=== PATIENT | female | born 1970 | race Caucasian/White ===

== ENCOUNTER 2023-03-09 16:04 | Outpatient (CLI) | payer BC, SELFPAY | END 2023-03-09 16:05 | disposition home or self-care (01) | LOC: NFLDREF 03-12 08:03 | PROVIDERS: Visit Provider Family Medicine | DX: R30.0 Dysuria (principal); N39.0 Urinary tract infection, site not specified | CPT/HCPCS: 87086; 87186 ==

== ENCOUNTER 2025-02-05 13:00 | Emergency (ER) | payer BC, SELFPAY ==
[2025-02-05] VITALS (132 sets, daily range): BP systolic 94–150; BP diastolic 64–138; PULSE 66–97; RESP 0–25; TEMP 36.2–36.4; O2SAT 89–99; BMI 37.8
--- OUTSIDE RECORDS SUMMARY | 2025-02-05 13:07 | XMS_ITS | Clinical Summary ---
Author Organization [facility] Address [address], [place] [address] Care Team Providers Care School Child Care Attendant Name Role Phone Unavailable Primary Care Provider Unavailabl e Source Comments You are receiving this document as you are listed as the primary care provider,follow-up provider, or the patient has been referred to you for consultation.This is in compliance with the Medicare andMedicaid EHR Incentive Program,which states Providers who transition their patient to another setting of careor provider of care or refers their patient to another provider of care shouldprovide summary care record for each transition of care or referral. [facility] Allergies No known active allergies Medications cyclobenzaprine (FLEXERIL) 10 MG tablet Take 1 Tablet (10 mg) by mouth three times a day as needed. FOR MUSCLE SPASMS 01/02/2023 Active doxepin (SINEQUAN) 50 MG capsule TAKE 1-2 CAPSULES BY MOUTH AT BEDTIME 12/19/2022 Active lamoTRIgine (LAMICTAL) 150 MG tablet Take 1 Tablet (150 mg) by mouth daily at bedtime. 01/03/2023 Active LORazepam (ATIVAN) 1 MG tablet Take 1 Tablet (1 mg) by mouth every 6 hours as needed. 01/01/2023 Active OLANZapine (ZYPREXA) 10 MG tablet Take 1 Tablet (10 mg) by mouth daily at bedtime. 01/03/2023 Active prazosin (MINIPRESS) 5 MG capsule Take 2 Capsules (10 mg) by mouth daily at bedtime. 12/08/2022 Active VIIBRYD 40 MG tablet Take 1 Tablet (40 mg) by mouth daily. 12/19/2022 Active Social History Tobacco Use Types Packs/Day Years Used Date Smoking Tobacco: Never Assessed Comments Unknown Sex and Gender Information Value Date Recorded Sex Assigned at Not on file Legal Sex Female 1:15 PM CDT Gender Identity Not on file Sexual Orientation Not on file Last Filed Vital Signs Vital Sign Reading Time Taken Comments Blood Pressure - - Pulse - - Temperature 36.3 C (97.3 F) 01/22/2023 11:25 AM CDT Respiratory Rate - - Oxygen Saturation - - Inhaled Oxygen Concentration - - Weight 99.8 kg (220 lb) 01/15/2023 2:05 PM CDT Height 162.6 cm (5' 4) 01/15/2023 2:05 PM CDT Body Mass Index 37.76 01/15/2023 2:05 PM CDT Plan of Treatment Health Maintenance Due Date Last Done Comments Cervical Cancer Screening Due 1970 Colon Cancer Screening Plan Due 1970 Hep C Screening (Preventive Services) 1970 Mammogram 1970 HIV Screening (Preventive Services) 1986 Adult Preventive Visit 1988 DTaP/Tdap/Td Vaccine (1 - Tdap) 1989 HepB Vaccine (1) 1989 Cholesterol 10/27/2015 Pneumococcal Vaccine 50+ Yrs (1 of 1 - PCV) 2020 Zoster/Shingles Vaccine (1 o f 2) 2020 COVID-19 Vaccine (4 - 2023-2 5 season) 2024 05/10/2021, 09/22/2020, 08/25/2020 Influenza Vaccine (#1) 2025 HepA Vaccine Aged Out No longer eligi ble based on patient's age to complete this topic Hib Vaccine Aged Out No longer eligi ble based on patient's age to complete this topic IPV (Polio) Vaccine Aged Out No longe r eligible based on patient's age to complete this topic MCV4 Vaccine Aged Out No longer eligi ble based on patient's age to complete this topic Meningococcal B Vaccine Aged Out No l onger eligible based on patient's age to complete this topic
--- OUTSIDE RECORDS SUMMARY | 2025-02-05 13:07 | XMS_ITS | Clinical Summary ---
Author Organization [facility] Address [address] [address] Phone Care Team Providers Care Pretzel Twisting Machine Operator Name Role Phone Elsewhere, Pcp Primary Care Provider Unavailabl e Allergies No known active allergies Medications busPIRone (BUSPAR) 5 MG tablet Take 5 mg by mouth two times a day. 02/15/2018 Active cyclobenzaprine (FLEXERIL) 10 MG tablet Take 10 mg by mouth three times a day as needed for Muscle Spasms. 02/15/2018 Active prazosin (MINIPRESS) 1 MG capsule Take 1-2 mg by mouth every evening. 02/15/2018 Active Active Problems Problem Noted Date Diagnosed Date Pulmonary embolism - right, segmental times 2 Overview (06/14/2014): Unprovoked Immunizations Immunization Administration Dates Next Due COVID-19 Vaccine: Moderna Dose 1 (18+ Yrs) Imm C linic 08/25/2020 09/22/2020 Family History Relation Status Comments Father aortic aneurism Mother Has CREST Sister Raynaud's Social History Tobacco Use Types Packs/Day Years Used Date Smoking Tobacco: Never Alcohol Use Standard Drinks/Week Comments No 0 (1 standard drink = 0.6 oz pur e alcohol) Occasional Comments No Sex and Gender Information Value Date Recorded Sex Assigned at Not on file Legal Sex Female 9:35 AM FITNESS CLUB MANAGER Gender Identity Not on file Sexual Orientation Not on file Primary [place] Affiliation Non Martiniquais (And Non-FED Nithin gnized Martiniquais) Obstetrics History Last Filed Vital Signs Vital Sign Reading Time Taken Comments Blood Pressure 147/93 03/06/2018 7:50 AM CDT Pulse 74 03/06/2018 7:50 AM CDT Temperature 36.6 C (97.9 F) 08/25/2020 2:12 PM CDT Respiratory Rate 16 03/06/2018 7:50 AM CDT Oxygen Saturation 98% 03/06/2018 7:50 AM CDT Inhaled Oxygen Concentration - - Weight 86.2 kg (190 lb) 03/05/2018 2:12 PM CDT Height 162.6 cm (5' 4) 03/05/2018 2:12 PM CDT Body Mass Index 32.61 03/05/2018 2:12 PM CDT Plan of Treatment Health Maintenance Due Date Last Done Comments CT Colonography 1970 Cervical Cancer Screening 1970 Cologuard 1970 Colonoscopy 1970 Colorectal Cancer Screening 1970 FIT/FOBT 1970 Last pap w/ HPV Testing 1970 Last pap w/o HPV Testing 1970 MAMMO,SCREEN 1970 Sigmoidoscopy 1970 Hepatitis B Vaccine (Standin g Order) (1 of 3 - 19+ 3-dose series) 1989 PERTUSSIS (Standing Order) 1989 TETANUS (Standing Order) 1989 Pneumococcal Vaccine: 50+ yr s (Standing Order) (1 of 1 - PCV) 2020 Shingrix (Zoster recombinant ) vaccine (Standing Order) (1 of 2) 2020 Influenza Vaccine Seasonal (Standing Order) (#1) 2025 HPV Vaccine (Standing Order) Aged Out No longer eligible based on patient's age to complete this topic Insurance [employer] Care Teams Pretzel Twisting Machine Operator Relationship Specialty Start Date End Date Elsewhere, Pcp PCP - General 08/15/01
--- OUTSIDE RECORDS SUMMARY | 2025-02-05 13:07 | XMS_ITS | Clinical Summary ---
Author Organization [facility] Address [address] [place] [address]. [place] [address] Care Team Providers Care Women'S Activities Adviser Name Role Phone Eric Narayanan MD Primary Care Provider [phone] Galindo Ruelas MD Unavailable [phone] Allergies Active Allergy Reactions Criticality Noted Date Comments Escitalopram Hives Low 03/06/2018 Medications ibuprofen (ADVIL/MOTRIN) 200 MG tablet Take 600 mg by mouth every 6 hours as needed for moderate pain Active ondansetron (ZOFRAN-ODT) 4 MG ODT tab Take 4 mg by mouth every 8 hours as needed for nausea or vomiting 3 9 Active VIIBRYD 40 MG TABS tablet Take 40 mg by mouth daily with a meal. 4 9 Active cyclobenzaprine (FLEXERIL) 10 MG tablet Take 10 mg by mouth 3 times daily as needed for muscle spasms Active aspirin-acetami nophen-caffeine (EXCEDRIN MIGRAINE) 250-250-65 MG tablet Take 2 tablets by mouth as needed for headaches Active busPIRone (BUSPAR) 15 MG tabletIndicatio ns:Depression with suicidal ideation Take 1 tablet (15 mg) by mouth 3 times daily 90 tablet 9 Active gabapentin (NEURONTIN) 400 MG capsuleIndicati ons:Depression with suicidal ideation Take 2 capsules (800 mg) by mouth 3 times daily 180 capsule 9 Active prazosin (MINIPRESS) 2 MG capsuleIndicati ons:Depression with suicidal ideation Take 6 capsules (12 mg) by mouth At Bedtime 180 capsule 9 Active QUEtiapine (SEROQUEL) 200 MG tabletIndicatio ns:Depression with suicidal ideation Take 1 tablet (200 mg) by mouth At Bedtime 30 tablet 9 Active lamoTRIgine (LAMICTAL) 25 MG tabletIndicatio ns:Depression with suicidal ideation Take 1 tablet (25 mg) by mouth At Bedtime 30 tablet 9 Active LORazepam (ATIVAN) 0.5 MG tabletIndicatio ns:Depression with suicidal ideation Take 1 tablet (0.5 mg) by mouth daily as needed (For severe panic only) 10 tablet 9 Active senna-docusate (SENOKOT-S/KECIA COLACE) 8.6-50 MG tabletIndicatio ns:Depression with suicidal ideation Take 2 tablets by mouth 2 times daily 120 tablet 9 Active Active Problems Problem Noted Date Diagnosed Date Depression with suicidal ideation 03/06/2018 PTSD (post-traumatic stress disorder) 03/06/2018 Moderate episode of recurrent major depressive d isorder 03/06/2018 Pulmonary embolism and infarction 06/13/2014 Overview (03/05/2015): Problem list name updated by automated process. Provider to review Family History Medical History Relation Comments Cerebrovascular Disease Brother TIA age 18 Thrombophilia Other 1 maternal aunt Circulatory Other 2 varicose veins i n mother and aunt Relation Status Comments Brother Other 1 Other 2 Social History Tobacco Use Types Packs/Day Years Used Date Smoking Tobacco: Never Smokeless Tobacco: Never Alcohol Use Standard Drinks/Week Comments Yes 0 (1 standard drink = 0.6 oz pur e alcohol) Adolescent Education Answer Date Record ed Getting School Help Needed Not on file 11/27 Comments Unknown Sex and Gender Information Value Date Recorded Sex Assigned at Not on file Legal Sex Female 4:20 AM TACK CLEANER Gender Identity Not on file Sexual Orientation Not on file Last Filed Vital Signs Vital Sign Reading Time Taken Comments Blood Pressure 115/76 05/25/2019 6:00 AM TACK CLEANER Pulse 82 05/25/2019 6:00 AM TACK CLEANER Temperature 35.9 C (96.7 F) 05/25/2019 6:00 AM TACK CLEANER Respiratory Rate 14 05/25/2019 6:00 AM TACK CLEANER Oxygen Saturation 96% 05/25/2019 6:00 AM TACK CLEANER Inhaled Oxygen Concentration - - Weight 98.3 kg (216 lb 11.2 oz) 05/25/2019 7:38 AM TACK CLEANER Height 162.6 cm (5' 4) 03/06/2018 11:1 5 AM CDT Body Mass Index 37.2 03/06/2018 11:15 AM CDT Plan of Treatment Health Maintenance Due Date Last Done Comments ANNUAL REVIEW OF HM ORDERS 1970 CT COLONOGRAPHY 1970 DEPRESSION ACTION PLAN 1970 DIABETES SCREENING 1970 FIT 1970 FLEX SIG 1970 MAMMO SCREENING 1970 PHQ-9 1970 sDNA (Cologuard) 1970 YEARLY PREVENTIVE VISIT 1973 COLONOSCOPY 1980 COLORECTAL CANCER SCREENING 1980 HIV SCREENING 1985 HEPATITIS C SCREENING 1988 HEPATITIS B VACCINE (1 of 3 - 19+ 3-dose series) 1989 PAP 10/27/1991 DTAP/TDAP/TD VACCINE (1 - Tdap) 10/27/1995 LIPID 2010 PNEUMOCOCCAL VACCINE 50+ YEARS (1 of 1 - PCV) 2020 ZOSTER VACCINE (1 of 2) 2020 ADVANCE CARE PLANNING 03/07/2023 03/07/2018 COVID-19 VACCINE (4 - 2023-2 5 season) 2024 05/10/2021, 09/22/2020, 08/25/2020 INFLUENZA VACCINE (#1) 2025 HPV VACCINE (No Doses Required) Completed MENINGITIS VACCINE Aged Out No longer eligible based on patient's age to complete this topic Advance Directives For more information, please contact: [phone] * Full Code (Latest Code Status on File) Date Activated Date Inactivated Comments 05/15/2019 2:14 PM 05/25/2019 4:18 PM Question Answer Comments Code status determined by: Unable to det ermine; FULL CODE until documents or legal decision maker available * Full Code Date Activated Date Inactivated Comments 03/06/2018 11:58 AM 03/08/2018 3:33 PM Question Answer Comments Code status determined by: Unable to det ermine; FULL CODE until documents or legal decision maker available Care Teams Women'S Activities Adviser Relationship Specialty Start Date End Date Eric Narayanan MD PCP - General Family Practice 12/17/14 Galindo Ruelas MD [address] [place] [id number] Radiology 12/18/14
--- OUTSIDE RECORDS SUMMARY | 2025-02-05 13:07 | XMS_ITS | Encounter Summary ---
Author Organization [facility] Address [facility] [place] [address] Care Team Providers Care Biofuels Processing Technician Name Role Phone Eric Narayanan MD Primary Care Provider [phone] Galindo Ruelas MD Unavailable [phone] Reason for Visit * Reason Comments Medication Refill Encounter Details Date Type Department Care Team (Late st Contact Info) Description 06/26/2019 Refill [facility] [address] [place] [id number] Naz Hutchison NP [address]. [address] [address] Medication Refill Social History Tobacco Use Types Packs/Day Years Used Date Smoking Tobacco: Never Smokeless Tobacco: Never Alcohol Use Standard Drinks/Week Comments Yes 0 (1 standard drink = 0.6 oz pur e alcohol) Comments Unknown Sex and Gender Information Value Date Recorded Sex Assigned at Not on file Legal Sex Female 4:20 AM CHEMIST INTERN Gender Identity Not on file Sexual Orientation Not on file documented as of this encounter Miscellaneous Notes * Telephone Encounter - Meri Salcedo RPH - 07/04/2019 9:10 AM CHEMIST INTERN Called [facility] in [place]. They had already talked to patient and forwarded to primary. IST INTERN documented in this encounter Plan of Treatment Not on file documented as of this encounter Visit Diagnoses Diagnosis Depression with suicidal ideation documented in this encounter Care Teams Biofuels Processing Technician Relationship Specialty Start Date End Date Eric Narayanan MD PCP - General Family Practice 12/17/14 Galindo Ruelas MD [address] [address] Radiology 12/18/14 documented as of this encounter
--- OUTSIDE RECORDS SUMMARY | 2025-02-05 13:07 | XMS_ITS | Clinical Summary ---
Author Organization [facility] Address [address] [place] [id number] Care Team Providers Care Iuss Acoustic Analyst Name Role Phone Eric Narayanan MD Primary Care Provider [phone] Anahi Alonso CONFERENCE SERVICES DIRECTOR Unavailable [phone] Allergies Active Allergy Reactions Criticality Noted Date Comments Escitalopram Hives Low 03/06/2018 Medications ibuprofen (ADVIL; MOTRIN) 200 mg tablet Take 800 mg by mouth 4 times daily if needed for Pain. Active aspirin-acetam inophen-caffei ne, 250-250-65 mg, (EXCEDRIN MIGRAINE) 250-250-65 mg tablet Take 2 tablets by mouth every 6 hours if needed for Headache. Max acetaminophen dose: 4000mg in 24 hrs. Active cyclobenzaprin e (FLEXERIL) 10 mg tabletIndicati ons:Fibromyalg ia Take 1 Tablet (10 mg) by mouth 3 times daily if needed for Muscle Spasm. 30 Tablet 12 3 Active vilazodone (Viibryd) 40 mg tabletIndicati ons:PTSD (post-traumati c stress disorder) TAKE 1 TABLET (40 MG) BY MOUTH ONCE DAILY WITH A MEAL. 30 Tablet 6 3 Active doxepin 50 mg capsuleIndicat ions:Other insomnia TAKE 1 OR 2 CAPSULES BY MOUTH AT BEDTIME 60 Capsule 3 3 Active lamoTRIgine (LAMICTAL) 150 mg tabletIndicati ons:PTSD (post-traumati c stress disorder) Take 1 Tablet (150 mg) by mouth at bedtime. 30 Tablet 3 3 Active LORazepam (ATIVAN) 1 mg tabletIndicati ons:PTSD (post-traumati c stress disorder) Take 1 Tablet (1 mg) by mouth every 6 hours if needed for Anxiety. 45 Tablet 3 3 Active OLANzapine (ZYPREXA, FILM COATED TABLET,) 10 mg tabletIndicati ons:Agitation TAKE 1 TABLET (10 MG) BY MOUTH AT BEDTIME. 30 Tablet 3 3 Active prazosin (MINIPRESS) 5 mg capsuleIndicat ions:PTSD (post-traumati c stress disorder) Take 2 Capsules (10 mg) by mouth at bedtime. 60 Capsule 3 3 Active Active Problems Problem Noted Date Diagnosed Date Obesity, morbid 04/18/2022 Controlled substance agreement signed 07/22/2019 Overview (04/11/2022): Initial CSA sign with Anahi Alonso, PhD, CFNP, PMHNP for Lorazepam on 07/22/2019-07/22/2020. Annual update 04/11/2022-04/11/2023 Chronic anemia 06/07/2019 Cellulitis of right leg 06/04/2019 Lymphangitis 06/04/2019 Dysthymic disorder 07/30/2018 Moderate episode of recurrent major depressive d isorder 03/06/2018 PTSD (post-traumatic stress disorder) 07/28/2016 Overview (07/30/2019): Previous medications tried: Lexapro 07/28/16 and Cymbalta 07/18/16 Previous hospitalizations: 03/06/18 [facility], 05/15/19 [facility] Genesight testing done 05/23/18 Last psych consult 05/09/18 Assessment & Plan (09/06/2021 8:34 PM CDT): In the event pt requires a pelvic exam, do not attempt in exam room. Pt needs to go to OR for light sedation. History of pulmonary embolus (PE) Overview (06/24/2015): unprovoked Fibromyalgia Anxiety Refusal of blood transfusion s as patient is [employer]ian Family History Medical History Relation Name Comments Good Health Brother 2 Stroke Father Other Mother autoimmmune dis order Stroke Mother Other Sister 2 Raynaud's Disea se Relation Name Status Comments Brother 1 Alive Brother 2 Daughter Alive Father (Age 52) smoker Mother Alive Sister 1 Alive Sister 2 Son 1 Alive Son 2 Alive Social History Tobacco Use Types Packs/Day Years Used Date Smoking Tobacco: Never Smokeless Tobacco: Never Tobacco Cessation:Counseling Given: Yes Alcohol Use Standard Drinks/Week Comments Yes 0 (1 standard drink = 0.6 oz pur e alcohol) rare PHQ-2 Answer Date Recorded PHQ-2 TOTAL SCORE 4 04/11/2022 Social Connections Answer Date Recorded Frequency of Communication with Friends and Fami ly Not on file 05/29/2021 Financial Resource Strain Answer Date R ecorded Difficulty of Paying Living Expenses Not on file 05/29/2021 Difficulty of Paying Living Expenses Not on file 05/29/2021 Comments Unknown Sex and Gender Information Value Date Recorded Sex Assigned at Not on file Legal Sex Female 3:04 AM ENTERTAINMENT USHER Gender Identity Not on file Sexual Orientation Not on file Obstetrics History Para Term AB IAB SAB Ectopic Multiple Livin g Live Births 3 Date Outcome GA Total Labor Labor/2nd/3rd Weight Sex Type Anes PTL Jojo A1 A5 Name Clin Last Filed Vital Signs Vital Sign Reading Time Taken Comments Blood Pressure 115/83 11/07/2022 1:10 PM CDT Pulse 100 11/07/2022 1:10 PM CDT Temperature 36.3 C (97.3 F) 11/07/2022 1:10 PM CDT Respiratory Rate 18 06/13/2019 11:0 0 AM ENTERTAINMENT USHER Oxygen Saturation 95% 11/07/2022 1:1 0 PM CDT Inhaled Oxygen Concentration - - Weight 115.2 kg (254 lb) 07/11/2022 1:0 4 PM ENTERTAINMENT USHER Height 162.6 cm (5' 4) 07/11/2022 1:04 PM ENTERTAINMENT USHER previous height used Body Mass Index 43.6 07/11/2022 1:04 PM ENTERTAINMENT USHER Plan of Treatment Health Maintenance Due Date Last Done Comments Tetanus booster 1981 HIV for age 15-65 1985 Hepatitis C screening for ag e 18-79 1988 Hepatitis B series for 19+ ( 1 of 3 - 19+ 3-dose series) 1989 Colonoscopy through age 75 10/27/2015 Mammogram for age 45-75 10/27/2015 07/10/2014, 07/10 Pneumococcal series for age 50+ (1 of 1 - PCV) 2020 Zoster (shingles) series for age 50+ (1 of 2) 2020 Pap test for age 21-65 06/25/2021 9, 06/25/2018, 09/04/2014 Depression screening for age 12+ 04/11/2023 04/11/2022, 05/17/2021, 05/17/2021 BMI (ht and wt on same day) for age 18+ 07/11/2023 07/11/2022, 04/11/2022, 08/19/2019, Additional history exists COVID-19 vaccine series (2024- season) 2025 05/10/2021, 09/22/2020, 08/25/2020 Influenza Vaccine (#1) 2025 Lipids for age 45-75 11/08/2027 11/07/2022, 04/04/2022, 06/17/2019 RSV vaccine for adults or (1 - 1-dose 75+ series) 2045 Procedures Procedure Name Priority Date/Time Associated Diagnosis Comments LIPID PANEL W REFLEX MEASURED LDL Routine 11/07/2022 1:27 PM CDT High risk medication use ELECTRICITY TRADING ANALYST THIN PREP PAP SCREEN IMAGED Routine 06/25/2018 10:26 AM ENTERTAINMENT USHER Screening for cervical cancer HM MAMMOGRAPHY Routine 07/10/2014 Screening for breast cancer from Last 3 Months or Most Recently Relevant to Health Maintenance Results * (ABNORMAL) LIPID PANEL W REFLEX MEASURED LDL (11/07/2022 1:27 PM CDT) CHOLESTEROL,TOTAL 245(H) <200 mg/dL 11/07/2022 6:[address] [facility] TRIGLYCERIDES 115 <150 mg/dL 11/07/2022 6:[address] [facility] HDL CHOLESTEROL 49 40 - 60 mg/dL 11/07/2022 6:[address] [facility] NON-HDL CHOLESTEROL 196(H) <145 mg/dl 11/07/2022 6:[address] [facility] CHOL/HDL RATIO 5.00(H) <=4.50 11/07/2022 6:[address] [facility] LDL CHOLESTEROL 173(H) <=130 mg/dL 11/07/2022 6:[address] [facility] VLDL CHOLESTEROL 23 mg/dL 11/08/19 23 6:[address] [facility] PROVIDER ORDERED STATUS RANDOM 11/07/2022 6:[address] [facility] Blood BLOOD SPECIMEN / Unknown Venipuncture / Unknown 11/07/2022 1:27 PM CDT 11/07/2022 1:27 PM CDT Anahi Alonso NP CHEMISTRY Final Result Performing Organization Address City/State/[facility] Co de Phone Number [facility] [address] [place] [address] * ELECTRICITY TRADING ANALYST THIN PREP PAP SCREEN IMAGED (06/25/2018 10:26 AM ENTERTAINMENT USHER) Case Report Gynecologic Cytology Report Case: [id number] Authorizing Provider: Tiana Lester NP Collected: 06/25/2018 1026 Ordering Location: [facility] Received: 06/25/[address] [place] [address] First Screen: Norman Haines Pathologist: Hector Washington Jr., MD Specimen: ELECTRICITY TRADING ANALYST ThinPrep Vial Screening, Cervical 07/09/2018 3:52 PM ENTERTAINMENT USHER [facility] INTERPRETATION/ RESULT NEGATIVE FOR INTRAEPITHELIAL LESION OR MALIGNANCY (NIL) (none) 07/09/2018 3:52 PM ENTERTAINMENT USHER [facility] ENTRAL LABORATORY at 1552 ENTERTAINMENT USHER OTHER NON-NEOPLASTIC FINDING(S) Reactive cellular changes associated with inflammation/repa ir 07/09/2018 3:52 PM ENTERTAINMENT USHER [facility] ENTRAL LABORATORY SPECIMEN ADEQUACY Satisfactory for evaluation Endocervical component present 07/09/2018 3:52 PM ENTERTAINMENT USHER [facility] ENTRAL LABORATORY HPV REQUEST HPV and PAP 07/09/2018 3:52 PM ENTERTAINMENT USHER [facility] ENTRAL LABORATORY Date of LMP 05/31/2018 07/09/2018 3:52 PM ENTERTAINMENT USHER [facility] Last Pap Date 201407/09/2018 3:52 PM ENTERTAINMENT USHER [facility] Last Pap Result LSIL 9 3:52 PM ENTERTAINMENT USHER [facility] Abnormal Pap or Cisco Bx in last 5 years No 07/09/2018 3:52 PM ENTERTAINMENT USHER [facility] Menstrual Status Regular Periods 07/09/2018 3:52 PM ENTERTAINMENT USHER [facility] Cisco Bx Done Today No 07/09/2018 3:52 PM ENTERTAINMENT USHER [facility] Additional Information None given 07/09/2018 3:52 PM [facility] Automated Review Successful 07/09/2018 3:52 PM ENTERTAINMENT USHER [facility] Comment:Specimen processed s uccessfully by automated poultry cutter device, ThinPrep Imaging System, [employer] ANCILLARY TESTING ELECTRICITY TRADING ANALYST HPV Ordered, Please see separate report 07/09/2018 3:52 PM ENTERTAINMENT USHER [facility] Note The pap test is a screening technique, not a diagnostic procedure. It is used primarily to screen for squamous cancers and precursor lesions. Published studies have shown that it is subject to both false negative and false positive results. The pap test should not be used as the sole means to diagnose or exclude pre-malignant and malignant lesions. Cytology is screened and interpreted at [facility] - [address], [place] [address] and [facility] - [address]; [place] [address] and - [address]; [place] [address] and [facility] [address]; [place] [address] 07/09/2018 3:52 PM [facility] Other (Cervical) 06/25/2018 10:26 AM ENTERTAINMENT USHER 06/25/2018 10:26 AM ENTERTAINMENT USHER us Tiana M Lester CONFERENCE SERVICES DIRECTOR PATHOLOGY/CYTOLOGY Final Resu lt [facility] [address] [place] [address], * MAMMOGRAPHY [] (07/10/2014) MAMMOGRAM Anatomical Region Laterality Modality Other Other Eric Narayanan MD HEALTH MAINT RESULTS Final R esult from Last 3 Months or Most Recently Relevant to Health Maintenance Insurance [employer]zz[employer] - how to [place] [employer] [place] Advance Directives * Full Code (Latest Code Status on File) Date Activated Date Inactivated Comments 06/04/2019 11:46 PM 06/07/2019 3:41 PM Question Answer Comments Code Status Discussion: Discussed * Full Code Date Activated Date Inactivated Comments 09/25/2005 10:42 PM 09/27/2005 3:58 PM * Full Code Date Activated Date Inactivated Comments 09/25/2005 9:22 PM 09/25/2005 10:42 PM * Full Code Date Activated Date Inactivated Comments 09/25/2005 9:07 PM 09/25/2005 9:08 PM * Full Code Date Activated Date Inactivated Comments 08/11/2005 12:26 PM 08/11/2005 9:23 PM Care Teams Iuss Acoustic Analyst Relationship Specialty Start Date End Date Eric Narayanan MD PCP - General Family Practice 06/24/15 Anahi Alonso NP [address] [place] [address] Mental Health Provider Mental Health 05/23/18
--- OUTSIDE RECORDS SUMMARY | 2025-02-05 13:07 | XMS_ITS | Encounter Summary ---
Author Organization [facility] Address [facility] [place] [address] Care Team Providers Care Auxiliary Operator Name Role Phone Eric Narayanan MD Primary Care Provider [phone] Galindo Ruelas MD Unavailable [phone] Reason for Visit * Reason Comments Medication Refill Encounter Details Date Type Department Care Team (Late st Contact Info) Description 07/08/2019 Refill [facility] [address] [place] [id number] Naz Hutchison NP [address]. [address] [address] Medication Refill Social History Tobacco Use Types Packs/Day Years Used Date Smoking Tobacco: Never Smokeless Tobacco: Never Alcohol Use Standard Drinks/Week Comments Yes 0 (1 standard drink = 0.6 oz pur e alcohol) Comments Unknown Sex and Gender Information Value Date Recorded Sex Assigned at Not on file Legal Sex Female 4:20 AM IMPLEMENTATION SERVICES ANALYST Gender Identity Not on file Sexual Orientation Not on file documented as of this encounter Miscellaneous Notes * Telephone Encounter - Meri Salcedo RPH - 07/08/2019 3:09 PM IMPLEMENTATION SERVICES ANALYST Needs to be sent to patient's PCP EMENTATION SERVICES ANALYST documented in this encounter Plan of Treatment Not on file documented as of this encounter Visit Diagnoses Diagnosis Depression with suicidal ideation documented in this encounter Care Teams Auxiliary Operator Relationship Specialty Start Date End Date Eric Narayanan MD PCP - General Family Practice 12/17/14 Galindo Ruelas MD [address] [place] [address] Radiology 12/18/14 documented as of this encounter
--- NOTE | 2025-02-05 13:19 | CRLHL7_ITS ---
For Patients: As a result of the Century Cures Act, medical imaging exams and procedure reports are released immediately into your electronic medical record. You may view this report before your referring provider. If you have questions, please contact your health care provider. INDICATION: Shortness of breath. TECHNIQUE: Chest 2 views. COMPARISON: None. FINDINGS: Cardiovascular and mediastinum: Heart size and vasculature are normal in caliber and appearance. Lungs and pleural spaces: No focal consolidation, pleural effusion, or pneumothorax. Bones and soft tissues: Unremarkable for age. IMPRESSION: No evidence of an acute pulmonary process. Dictated by Galindo Power MD @ 02/05/2025 1:51:18 PM (Electronically Signed)
[2025-02-05 13:38] LABS: Lactate* 1.7 mmol/L (0.5-1.9)
[2025-02-05] MEDS: ASPIRIN 81 MG TAB.CHEW 324 MG PO (13:46)
[2025-02-05] MEDS: ONDANSETRON 2 MG/ML inj 4 MG IVP (13:53)
--- NOTE | 2025-02-05 13:54 | ED.GENADULT ---
HPI - General Adult General Chief complaint: Chest Pain Stated complaint: Chest/L arm pain Time Seen by Provider: 02/05/25 13:12 Source: patient Mode of arrival: ambulatory Limitations: no limitations History of Present Illness HPI narrative: 54-year-old female presenting today with chest pain and shortness of breath. Patient states she has felt this way for about 3 weeks. She feels chest discomfort over the left chest wall that radiates down the left arm and into her left jaw with minimal physical activity. She has to go up and down the stairs in her home when she does the laundry this is when she feels it the most. Causes her to feel sweaty and short of breath and nauseated. She also feels somewhat lightheaded when this occurs. When she stops and rests her symptoms go away. However, this morning she woke up and started feeling that discomfort right away. She states that is still present right now but not as strong as it was, she does feel nauseous. Patient denies any past medical history of coronary artery disease. She does have a history of a PE approximately 8 years ago. She also has anxiety, depression, PTSD, fibromyalgia, obesity. She denies tobacco use. Family history is positive for a father with coronary artery disease, from an RI at the age of 50. Mom at the age of 68 from a stroke. Patient is not anticoagulated. Does not take daily aspirin. Denies history of hyperlipidemia or hypertension. Is not diabetic. Related Data Home Medications ?Medication ?Instructions ?Recorded ?Confirmed cyclobenzaprine 10 mg tablet 10 mg PO 3XD 03/09/23 02/05/25 doxepin 50 mg capsule mg PO 03/09/23 03/09/23 lamotrigine 150 mg tablet 150 mg PO DAILY 03/09/23 02/05/25 lorazepam 1 mg tablet 1 mg PO 3XD 03/09/23 02/05/25 olanzapine 10 mg tablet 10 mg PO QPM 03/09/23 02/05/25 vilazodone 40 mg tablet (Viibryd) 40 mg PO DAILY 03/09/23 02/05/25 prazosin 5 mg capsule 10 mg PO DAILY 02/05/25 02/05/25 Allergies Allergy/AdvReac Type Severity Reaction Status Date / Time No Known Drug Allergies Allergy Verified 03/09/23 16:57 Review of Systems Status of ROS: Reports: 10 or more systems reviewed and unremarkable except as noted in History and below [facility] Social History Smoking Status: Never smoker Do you use any of these nicotine containing products: None Second hand tobacco smoke exposure: No How often do you have a drink containing alcohol: never AUDIT-C Alcohol total score: 0 Non-prescribed substance use: denies use service: No Exam Narrative: Exam Narrative: Obese, well-developed patient in no acute distress. Alert and oriented. Answers questions appropriately. Mood and affect are appropriate. Thoughts are goal oriented and rational. No tangential or magical thinking noted. Patient speaks in full sentences without needing to catch her breath. HEENT: Normocephalic atraumatic. Pupils are equally round reactive to light. Extraocular muscles are intact. Conjunctivae are moist without any icterus noted. Moist mucous membranes. Posterior pharynx is normal. Neck is soft without any lymphadenopathy or thyromegaly. Cardiovascular: Heart is regular rate and rhythm S1 and S2 are present without any murmurs. Lungs: Clear to auscultation bilaterally no wheezes rhonchi or rales are appreciated. Patient takes deep breaths without any discomfort. Abdomen: Soft and nontender nondistended with normal bowel sounds. Extremities: Bilateral lower extremities are without edema. Skin: Well perfused without any obvious rashes. Const: Vital Signs, click to edit/add: Vital Signs - 24 hr 02/05/25 13:05 02/05/25 13:35 02/05/25 13:37 Temperature 97.6 F Pulse Rate 78 81 Pulse Rate [Pulse Oximeter] 90 Respiratory Rate 18 10 L Blood Pressure 136/76 Blood Pressure [Ri ght Upper Arm] 104/73 Pulse Oximetry 94 96 94 Oxygen Delivery Me thod Room Air 02/05/25 13:45 02/05/25 13:46 02/05/25 14:00 Temperature Pulse Rate 78 84 76 Pulse Rate [Pulse Oximeter] Respiratory Rate 7 L 7 L 13 Blood Pressure 125/87 Blood Pressure [Ri ght Upper Arm] Pulse Oximetry 96 97 98 Oxygen Delivery Me thod 02/05/25 14:01 02/05/25 14:15 02/05/25 14:22 Temperature Pulse Rate 77 78 79 Pulse Rate [Pulse Oximeter] Respiratory Rate 8 L 0 L 7 L Blood Pressure 118/81 122/77 Blood Pressure [Ri ght Upper Arm] Pulse Oximetry 97 97 95 Oxygen Delivery Mt thod 02/05/25 14:30 02/05/25 14:48 02/05/25 14:49 Temperature 97.1 F L Pulse Rate 79 79 Pulse Rate [Pulse Oximeter] Respiratory Rate 10 L 23 13 Blood Pressure 129/74 Blood Pressure [Ri ght Upper Arm] Pulse Oximetry 94 97 [facility] 02/05/25 14:50 02/05/25 14:53 02/05/25 15:00 Temperature Pulse Rate 66 78 Pulse Rate [Pulse Oximeter] Respiratory Rate 14 13 Blood Pressure Blood Pressure [Ri ght Upper Arm] Pulse Oximetry 96 96 95 Oxygen Delivery [facility] 02/05/25 15:02 02/05/25 15:07 02/05/25 15:11 Temperature Pulse Rate 85 74 75 Pulse Rate [Pulse Oximeter] Respiratory Rate 15 12 9 L Blood Pressure 106/68 106/68 107/72 Blood Pressure [Ri ght Upper Arm] Pulse Oximetry 93 94 93 Oxygen Delivery [facility] 02/05/25 15:12 02/05/25 15:15 02/05/25 15:17 Temperature Pulse Rate 74 73 76 Pulse Rate [Pulse Oximeter] Respiratory Rate 16 8 L 11 L Blood Pressure 109/73 Blood Pressure [Ri ght Upper Arm] Pulse Oximetry 92 93 94 Oxygen Delivery [facility] 02/05/25 15:22 02/05/25 15:27 02/05/25 15:30 Temperature Pulse Rate 73 78 76 Pulse Rate [Pulse Oximeter] Respiratory Rate 19 20 10 L Blood Pressure 123/73 121/77 Blood Pressure [Ri ght Upper Arm] Pulse Oximetry 95 96 92 Oxygen Delivery [facility] 02/05/25 15:32 02/05/25 15:45 02/05/25 15:53 Temperature Pulse Rate 75 73 72 Pulse Rate [Pulse Oximeter] Respiratory Rate 16 8 L 7 L Blood Pressure 112/71 Blood Pressure [Ri ght Upper Arm] Pulse Oximetry 95 97 95 Oxygen Delivery [facility] 02/05/25 16:00 02/05/25 16:02 02/05/25 16:06 Temperature Pulse Rate 82 72 68 Pulse Rate [Pulse Oximeter] Respiratory Rate 14 7 L 9 L Blood Pressure 120/93 H 115/71 Blood Pressure [Ri ght Upper Arm] Pulse Oximetry 98 94 95 Oxygen Delivery Me thod 02/05/25 16:11 02/05/25 16:15 02/05/25 16:17 Temperature Pulse Rate 71 70 68 Pulse Rate [Pulse Oximeter] Respiratory Rate 10 L 8 L 8 L Blood Pressure 108/67 106/66 Blood Pressure [Ri ght Upper Arm] Pulse Oximetry 96 96 96 Oxygen Delivery Mt thod 02/05/25 16:18 02/05/25 16:22 02/05/25 16:27 Temperature Pulse Rate 71 79 82 Pulse Rate [Pulse Oximeter] Respiratory Rate 7 L 12 18 Blood Pressure 94/66 116/74 Blood Pressure [Ri ght Upper Arm] Pulse Oximetry 96 97 93 Oxygen Delivery Mt thod 02/05/25 16:30 02/05/25 16:32 02/05/25 16:37 Temperature Pulse Rate 80 73 74 Pulse Rate [Pulse Oximeter] Respiratory Rate 14 9 L 14 Blood Pressure 115/72 115/74 Blood Pressure [Ri ght Upper Arm] Pulse Oximetry 92 95 96 Oxygen Delivery Mt thod 02/05/25 16:42 02/05/25 16:45 02/05/25 16:47 Temperature Pulse Rate 78 74 72 Pulse Rate [Pulse Oximeter] Respiratory Rate 18 17 10 L Blood Pressure 120/78 121/77 Blood Pressure [Ri ght Upper Arm] Pulse Oximetry 98 95 98 Oxygen Delivery Mt thod 02/05/25 16:52 02/05/25 16:56 02/05/25 17:00 Temperature Pulse Rate 85 79 83 Pulse Rate [Pulse Oximeter] Respiratory Rate 13 4 L 10 L Blood Pressure 117/72 105/64 Blood Pressure [Ri ght Upper Arm] Pulse Oximetry 98 94 97 Oxygen Delivery Mt thod 02/05/25 17:01 02/05/25 17:06 02/05/25 17:12 Temperature Pulse Rate 84 81 83 Pulse Rate [Pulse Oximeter] Respiratory Rate 10 L 17 13 Blood Pressure 119/77 122/74 114/68 Blood Pressure [Ri ght Upper Arm] Pulse Oximetry 98 95 95 Oxygen Delivery Mt thod 02/05/25 17:15 02/05/25 17:17 02/05/25 17:22 Temperature Pulse Rate 81 83 83 Pulse Rate [Pulse Oximeter] Respiratory Rate 13 9 L 10 L Blood Pressure 119/70 118/65 Blood Pressure [Ri ght Upper Arm] Pulse Oximetry 97 96 97 Oxygen Delivery Me thod 02/05/25 17:27 02/05/25 17:30 02/05/25 17:32 Temperature Pulse Rate 83 83 80 Pulse Rate [Pulse Oximeter] Respiratory Rate 17 12 12 Blood Pressure 120/71 122/68 Blood Pressure [Ri ght Upper Arm] Pulse Oximetry 97 99 98 Oxygen Delivery Me thod 02/05/25 17:37 02/05/25 17:38 02/05/25 17:42 Temperature Pulse Rate 86 82 81 Pulse Rate [Pulse Oximeter] Respiratory Rate 15 12 9 L Blood Pressure 123/65 114/78 Blood Pressure [Ri ght Upper Arm] Pulse Oximetry 96 96 97 Oxygen Delivery Me thod 02/05/25 17:45 02/05/25 17:47 02/05/25 17:51 Temperature Pulse Rate 76 78 Pulse Rate [Pulse Oximeter] Respiratory Rate 11 L 7 L 11 L Blood Pressure 114/74 115/74 Blood Pressure [Ri ght Upper Arm] Pulse Oximetry 91 98 Oxygen Delivery Mt thod 02/05/25 17:56 02/05/25 18:00 02/05/25 18:01 Temperature Pulse Rate 75 76 73 Pulse Rate [Pulse Oximeter] Respiratory Rate 12 10 L 10 L Blood Pressure 108/86 111/71 Blood Pressure [Ri ght Upper Arm] Pulse Oximetry 97 92 91 Oxygen Delivery Mt thod 02/05/25 18:06 02/05/25 18:12 02/05/25 18:15 Temperature Pulse Rate 73 75 76 Pulse Rate [Pulse Oximeter] Respiratory Rate 7 L 16 6 L Blood Pressure 109/71 115/76 Blood Pressure [Ri ght Upper Arm] Pulse Oximetry 93 92 97 Oxygen Delivery Me thod 02/05/25 18:17 02/05/25 18:22 02/05/25 18:27 Temperature Pulse Rate 76 76 76 Pulse Rate [Pulse Oximeter] Respiratory Rate 12 8 L 8 L Blood Pressure 114/66 109/66 112/72 Blood Pressure [Ri ght Upper Arm] Pulse Oximetry 96 96 97 Oxygen Delivery Me thod 02/05/25 18:30 02/05/25 18:32 02/05/25 18:37 Temperature Pulse Rate 80 78 80 Pulse Rate [Pulse Oximeter] Respiratory Rate 10 L 11 L 11 L Blood Pressure 111/69 122/73 Blood Pressure [Ri ght Upper Arm] Pulse Oximetry 90 92 91 Oxygen Delivery Me thod 02/05/25 18:44 02/05/25 18:48 02/05/25 18:52 Temperature Pulse Rate Pulse Rate [Pulse Oximeter] Respiratory Rate 18 20 Blood Pressure 150/138 H 122/77 Blood Pressure [Ri ght Upper Arm] Pulse Oximetry Oxygen Delivery Mt thod 02/05/25 18:57 02/05/25 19:00 02/05/25 19:02 Temperature Pulse Rate 73 73 72 Pulse Rate [Pulse Oximeter] Respiratory Rate 15 7 L 13 Blood Pressure 128/80 123/80 Blood Pressure [Ri ght Upper Arm] Pulse Oximetry 96 96 93 Oxygen Delivery Mt thod 02/05/25 19:07 02/05/25 19:11 02/05/25 19:12 Temperature Pulse Rate 74 89 92 Pulse Rate [Pulse Oximeter] Respiratory Rate 12 9 L 20 Blood Pressure 118/82 140/90 H Blood Pressure [Ri ght Upper Arm] Pulse Oximetry 95 95 97 Oxygen Delivery [facility] 02/05/25 19:15 02/05/25 19:17 02/05/25 19:22 Temperature Pulse Rate 97 96 78 Pulse Rate [Pulse Oximeter] Respiratory Rate 22 21 13 Blood Pressure 150/91 H 131/83 Blood Pressure [Ri ght Upper Arm] Pulse Oximetry 97 97 98 Oxygen Delivery [facility] 02/05/25 19:27 02/05/25 19:30 02/05/25 19:32 Temperature Pulse Rate 77 74 74 Pulse Rate [Pulse Oximeter] Respiratory Rate 13 21 17 Blood Pressure 130/77 125/77 Blood Pressure [Ri ght Upper Arm] Pulse Oximetry 95 94 94 Oxygen Delivery Mt thod 02/05/25 19:37 02/05/25 19:42 02/05/25 19:45 Temperature Pulse Rate 74 75 73 Pulse Rate [Pulse Oximeter] Respiratory Rate 14 13 14 Blood Pressure 128/74 121/75 Blood Pressure [Ri ght Upper Arm] Pulse Oximetry 95 94 94 Oxygen Delivery Mt thod 02/05/25 19:46 02/05/25 19:51 02/05/25 19:57 Temperature Pulse Rate 72 75 74 Pulse Rate [Pulse Oximeter] Respiratory Rate 16 14 20 Blood Pressure 122/77 128/79 128/81 Blood Pressure [Ri ght Upper Arm] Pulse Oximetry 95 94 96 Oxygen Delivery Me thod 02/05/25 20:00 02/05/25 20:02 02/05/25 20:07 Temperature Pulse Rate 79 75 76 Pulse Rate [Pulse Oximeter] Respiratory Rate 21 24 17 Blood Pressure 124/80 126/80 Blood Pressure [Ri ght Upper Arm] Pulse Oximetry 95 95 94 Oxygen Delivery Me thod 02/05/25 20:12 02/05/25 20:15 02/05/25 20:17 Temperature Pulse Rate 75 77 75 Pulse Rate [Pulse Oximeter] Respiratory Rate 18 24 15 Blood Pressure 120/72 117/71 Blood Pressure [Ri ght Upper Arm] Pulse Oximetry 95 93 93 Oxygen Delivery Me thod 02/05/25 20:22 02/05/25 20:27 02/05/25 20:30 Temperature Pulse Rate 78 81 78 Pulse Rate [Pulse Oximeter] Respiratory Rate 13 12 18 Blood Pressure 132/68 131/74 Blood Pressure [Ri ght Upper Arm] Pulse Oximetry 92 95 94 Oxygen Delivery Me thod 02/05/25 20:32 Temperature Pulse Rate 78 Pulse Rate [Pulse Oximeter] Respiratory Rate 15 Blood Pressure 122/69 Blood Pressure [Ri ght Upper Arm] Pulse Oximetry 90 Oxygen Delivery Me thod Course Course ED Course: IV is established and patient is given aspirin and morphine. We also started IV fluids. As patient states that she feels dehydrated, as well as Zofran for nausea. EKG, read by me, shows normal sinus rhythm with a pulse of 83. She does have a right axis deviation and incomplete right bundle-branch block. Prolonged QT with a QTC of 493. Chest x-ray: Read by me, does not show any acute pathology. Blood work is unremarkable. This includes a normal troponin and D-dimer. Of note, urine drug screen positive for opiates and tricyclic antidepressants. Her pain did continue and we did try sublingual nitro which brought her pain from a 5/10 to a 3/10. However, this also dropped her blood pressure back to 104 systolic[address] patient with Dr. Elliott, cardiology at [facility], recommends transfer for a CT coronary angiogram. Repeat EKG did not show any changes. Repeat troponin remained 0. 3rd troponin remained 0. Vital Signs Vital signs: Initial Vital Signs Temperature 97.6 F 02/05/25 13:05 Temperature Source Temporal Artery Scan 02/05/25 13:05 Pulse Rate 90 02/05/25 13:05 Respiratory Rate 18 02/05/25 13:05 Blood Pressure 104/73 02/05/25 13:05 Blood Pressure Mean 83 02/05/25 13:05 Pulse Oximetry 94 02/05/25 13:05 Oxygen Delivery Method Room Air 02/05/25 13:05 Vital Signs Temperature 97.6 F 02/05/25 13:05 Pulse Rate 90 02/05/25 13:05 Respiratory Rate 18 02/05/25 13:05 Blood Pressure 104/73 02/05/25 13:05 Pulse Oximetry 94 02/05/25 13:05 Oxygen Delivery Method Room Air 02/05/25 13:05 Temperature 97.1 F L 02/05/25 14:49 Pulse Rate 78 02/05/25 20:32 Respiratory Rate 15 02/05/25 20:32 Blood Pressure 122/69 02/05/25 20:32 Pulse Oximetry 90 02/05/25 20:32 Oxygen Delivery Method Room Air 02/05/25 13:05 Medications Administered Medications: Discontinued Medications Generic Name Dose Route Start Last Admin Trade Name Freq PRN Reason Stop Dose Admin Aspirin 324 mg 02/05/25 13:19 02/05/25 13:46 Aspirin 81 Mg Tab.Chew PO 02/05/25 13:20 324 mg ONCE ONE Administration Sodium Chloride 1,000 mls @ 1,000 mls/hr 02/05/25 14:00 02/05/25 15:00 0.9 % Sodium Chloride 1000 Ml IV 02/05/25 14:59 Infused .Q1H KASSI Infusion Morphine Sulfate 2 mg 02/05/25 13:19 02/05/25 13:47 Morphine 2 Mg/Ml Inj IVP 02/05/25 13:20 2 mg ONCE ONE Administration Nitroglycerin 0.4 mg 02/05/25 14:52 02/05/25 14:57 Nitroglycerin 0.4 Mg Tab.Subl SUBLINGUAL 02/05/25 14:53 0.4 mg ONCE ONE Administration Ondansetron HCl 4 mg 02/05/25 13:52 02/05/25 13:53 Ondansetron 2 Mg/Ml Inj IVP 02/05/25 13:53 4 mg ONCE ONE Administration Medical Decision Making MDM Narrative Medical decision making narrative: 54-year-old female presenting with chest pain, symptoms concerning for unstable angina. Patient will be transferred to [place] for further management. Up to an 8 hour bed wait. Lab Data Lab results reviewed: Yes I reviewed the patient's lab results Labs: Lab Results 02/05/25 02/05/25 02/05/25 Range/Units 13:20 13:30 15:23 WBC 6.05 (4.50-11.00) K/uL RBC 4.42 (4.00-5.20) m/uL Hgb 14.3 (12.0-16.0) gm/dL Hct 42.7 (33.0-51.0) % MCV 97 (80-100) fL MCH 32 (26-34) pg MCHC 34 (32-36) gm/dL RDW Coeff of Jolene 13.0 (11.5-15.5) % Plt Count 234 (140-440) K/uL Neut % (Auto) 61.3 (42.0-72.0) % Lymph % (Auto) 31.4 (20-44) % [place] % (Auto) 4.6 (0.0-11.0) % Eos % (Auto) 1.8 (0.0-7.0) % Baso % (Auto) 0.2 (0.0-3.0) % Neut # (Auto) 3.71 (1.7-7.0) K/uL Lymph # (Auto) 1.90 (0.90-2.90) K/uL [place] # (Auto) 0.30 (0.00-0.90) K/UL Eos # (Auto) 0.11 (0.00-0.50) K/uL Baso # (Auto) 0.01 (0.00-0.30) K/uL Abs Immat Gran (auto) 0.04 (0.00-0.30) K/uL Imm/Tot Granulo (auto) 0.7 % ESR 27 H (2-20) mm/hr D-Dimer Quant (PE/DVT) < 0.27 (0.00-0.50) ug/ml Sodium 138 (135-149) mmol/L Potassium 4.0 (3.6-5.1) mmol/L Chloride 100 (96-114) mmol/L Carbon Dioxide 32 (20-32) mmol/L Anion Gap 6 L (7-15) mEq/L BUN 7 (7-30) mg/dL Creatinine 1.0 (0.5-1.5) mg/dL Estimated Creat Clear 55.54 Estimated GFR 67 ml/min Glucose 110 (60-115) mg/dL Lactate 1.7 (0.5-1.9) mmol/L Calcium 9.1 (8.4-10.6) mg/dL Magnesium 2.2 (1.5-2.6) mg/dL Total Bilirubin 0.6 (0.1-1.5) mg/dL Direct Bilirubin 0.2 (0.0-0.5) mg/dL AST 42 H (12-35) U/L ALT 37 H (4-35) U/L Alkaline Phosphatase 157 H (40-150) U/L Troponin I < 0.01 (0.01-0.04) ng/mL C-Reactive Protein 1.6 H (0.5-1.0) mg/dL Total Protein 7.0 (6.0-8.3) g/dL Albumin 4.0 (3.3-5.0) g/dL Lipase 41 (23-300) U/L Salicylates < 1.0 L (1.0-10) mg/dL Urine Opiates Screen POSITIVE A (Negative) Ur Oxycodone Screen Negative (Negative) Urine Methadone Screen Negative (Negative) Acetaminophen < 10.0 (10.0-30.0) ug/mL Ur Barbiturates Screen Negative (Negative) U Tricyclic Antidepress POSITIVE A (Negative) Ur Phencyclidine Scrn Negative (Negative) Ur Amphetamines Screen Negative (Negative) U Methamphetamines Scrn Negative (Negative) U Benzodiazepines Scrn Negative (Negative) Urine Cocaine Screen Negative (Negative) U Marijuana (THC) Screen Negative (Negative) Ur Drug Screen Comment See Note POC Troponin I 0.00 L (0.01-0.04) ng/ml 02/05/25 Range/Units 20:32 WBC (4.50-11.00) K/uL RBC (4.00-5.20) m/uL Hgb (12.0-16.0) gm/dL Hct (33.0-51.0) % MCV (80-100) fL MCH (26-34) pg MCHC (32-36) gm/dL RDW Coeff of Jolene (11.5-15.5) % Plt Count (140-440) K/uL Neut % (Auto) (42.0-72.0) % Lymph % (Auto) (20-44) % [place] % (Auto) (0.0-11.0) % Eos % (Auto) (0.0-7.0) % Baso % (Auto) (0.0-3.0) % Neut # (Auto) (1.7-7.0) K/uL Lymph # (Auto) (0.90-2.90) K/uL [place] # (Auto) (0.00-0.90) K/UL Eos # (Auto) (0.00-0.50) K/uL Baso # (Auto) (0.00-0.30) K/uL Abs Immat Gran (auto) (0.00-0.30) K/uL Imm/Tot Granulo (auto) % ESR (2-20) mm/hr D-Dimer Quant (PE/DVT) (0.00-0.50) ug/ml Sodium (135-149) mmol/L Potassium (3.6-5.1) mmol/L Chloride (96-114) mmol/L Carbon Dioxide (20-32) mmol/L Anion Gap (7-15) mEq/L BUN (7-30) mg/dL Creatinine (0.5-1.5) mg/dL Estimated Creat Clear Estimated GFR ml/min Glucose (60-115) mg/dL Lactate (0.5-1.9) mmol/L Calcium (8.4-10.6) mg/dL Magnesium (1.5-2.6) mg/dL Total Bilirubin (0.1-1.5) mg/dL Direct Bilirubin (0.0-0.5) mg/dL AST (12-35) U/L ALT (4-35) U/L Alkaline Phosphatase (40-150) U/L Troponin I (0.01-0.04) ng/mL C-Reactive Protein (0.5-1.0) mg/dL Total Protein (6.0-8.3) g/dL Albumin (3.3-5.0) g/dL Lipase (23-300) U/L Salicylates (1.0-10) mg/dL Urine Opiates Screen (Negative) Ur Oxycodone Screen (Negative) Urine Methadone Screen (Negative) Acetaminophen (10.0-30.0) ug/mL Ur Barbiturates Screen (Negative) U Tricyclic Antidepress (Negative) Ur Phencyclidine Scrn (Negative) Ur Amphetamines Screen (Negative) U Methamphetamines Scrn (Negative) U Benzodiazepines Scrn (Negative) Urine Cocaine Screen (Negative) U Marijuana (THC) Screen (Negative) Ur Drug Screen Comment POC Troponin I 0.00 L (0.01-0.04) ng/ml Imaging Data Chest x-ray: Attestation: I have reviewed the pertinent imaging results. Radiologist's impression: TECHNIQUE: Chest 2 views. COMPARISON: None. FINDINGS: Cardiovascular and mediastinum: Heart size and vasculature are normal in caliber and appearance. Lungs and pleural spaces: No focal consolidation, pleural effusion, or pneumothorax. Bones and soft tissues: Unremarkable for age. IMPRESSION: No evidence of an acute pulmonary process. ECG Data Attestation: I personally reviewed and interpreted this ECG as follows: Discharge Plan Discharge Clinical Impression: Unstable angina Patient Disposition: [facility] Condition: Stable Prescriptions: No Action olanzapine 10 mg tablet 10 mg PO QPM lamotrigine 150 mg tablet 150 mg PO DAILY vilazodone [Viibryd] 40 mg tablet 40 mg PO DAILY doxepin 50 mg capsule PO lorazepam 1 mg tablet 1 mg PO 3XD cyclobenzaprine 10 mg tablet 10 mg PO 3XD prazosin 5 mg capsule 10 mg PO DAILY Stand Alone Forms: VIOSO Info Instructions
[2025-02-05 13:56] LABS: Albumin* 4.0 g/dL (3.3-5.0); Chloride* 100 mmol/L (96-114)
[2025-02-05 13:57] LABS: Potassium* 4.0 mmol/L (3.6-5.1); Sodium* 138 mmol/L (135-149)
[2025-02-05 13:59] LABS: Blood Urea Nitrogen* 7 mg/dL (7-30); Creatinine* 1.0 mg/dL (0.5-1.5); Est. Creatinine Clearance* 55.54; Estimated Glomerular Filt Rate 67 ml/min; Hematocrit 42.7 % (33.0-51.0); Hemoglobin* 14.3 gm/dL (12.0-16.0); Immature Granulocytes Abs Auto 0.04 K/uL (0.00-0.30); Immature Granulocytes Pct Auto 0.7 %; Lymphocytes Absolute Auto 1.90 K/uL (0.90-2.90); Mean Corpuscular HGB Conc 34 gm/dL (32-36); Mean Corpuscular Hemoglobin 32 pg (26-34); Mean Corpuscular Volume 97 fL (80-100); RDW Coefficient of Variation % 13.0 % (11.5-15.5); Red Blood Count 4.42 m/uL (4.00-5.20); White Blood Count* 6.05 K/uL (4.50-11.00)
[2025-02-05 14:00] LABS: Alanine Aminotransferase* 37 U/L (4-35); Alkaline Phosphatase* 157 U/L (40-150); Anion Gap 6 mEq/L (7-15); Aspartate Amino Transferase* 42 U/L (12-35); Bilirubin Direct* 0.2 mg/dL (0.0-0.5); Bilirubin Total* 0.6 mg/dL (0.1-1.5); Calcium* 9.1 mg/dL (8.4-10.6); Carbon Dioxide* 32 mmol/L (20-32); Glucose* 110 mg/dL (60-115); Slide Review Reflex No; Total Protein* 7.0 g/dL (6.0-8.3)
[2025-02-05 14:06] LABS: Acetaminophen* < 10.0 ug/mL (10.0-30.0); Salicylate* < 1.0 mg/dL (1.0-10)
[2025-02-05 14:13] LABS: D Dimer Quantitative* < 0.27 ug/ml (0.00-0.50)
[2025-02-05] MEDS: NITROGLYCERIN 0.4 MG TAB.SUBL SUBLINGUAL (14:57)
[2025-02-05 15:10] LABS: Erythrocyte SedimentationRate* 27 mm/hr (2-20)
[2025-02-05 15:21] LABS: Cannabinoid Screen Urine Negative (Negative); Methamphetamines Screen Urine Negative (Negative); Tricyclic Antidepressant Urine POSITIVE (Negative)
[2025-02-05 15:54] LABS: Troponin, Point-of-Care* 0.00 ng/ml (0.01-0.04)
[2025-02-05 20:51] LABS: Troponin, Point-of-Care* 0.00 ng/ml (0.01-0.04)
== END 2025-02-05 22:28 | disposition short-term general hospital (02) ==
PROVIDERS: Emergency Provider Family Medicine
DX: I20.0 Unstable angina (principal)
CPT/HCPCS: 36415; 71046; 80048; 80076; 80143; 80179; 80306; 83605; 83690; 83735; 84484; 85025; 85379; 85651; 86140; 93005; 94761; 96374; 96375; 99285; A9270; J2270; J2405; J7030

== ENCOUNTER 2025-02-05 22:20 | Outpatient (CLI) | payer BC, SELFPAY | END 2025-02-05 22:21 | disposition home or self-care (01) | LOC: AMB 02-06 10:07 | PROVIDERS: Visit Provider Emergency Medicine | DX: I20.0 Unstable angina (principal) | CPT/HCPCS: A0425; A0427 ==

== ENCOUNTER 2025-02-22 13:25 | Emergency (ER) | payer BC, SELFPAY ==
--- OUTSIDE RECORDS SUMMARY | 2025-02-22 13:28 | XMS_ITS | Encounter Summary ---
Author Organization [facility] Address [facility] [place] [address] Care Team Providers Care Timber Deadener Name Role Phone Eric Narayanan MD Primary Care Provider [phone] Galindo Ruelas MD Unavailable [phone] Reason for Visit * Reason Comments Medication Refill Encounter Details Date Type Department Care Team (Late st Contact Info) Description 06/26/[address] [facility] [address] [place] [id number] Naz Hutchison NP [address] [address] Medication Refill Social History Tobacco Use Types Packs/Day Years Used Date Smoking Tobacco: Never Smokeless Tobacco: Never Alcohol Use Standard Drinks/Week Comments Yes 0 (1 standard drink = 0.6 oz pur e alcohol) Comments Unknown Sex and Gender Information Value Date Recorded Sex Assigned at Not on file Legal Sex Female 4:20 AM SECURITY ARCHITECT Gender Identity Not on file Sexual Orientation Not on file documented as of this encounter Miscellaneous Notes * Telephone Encounter - Meri Salcedo RPH - 07/04/2019 9:10 AM SECURITY ARCHITECT Called angelina wilde in [place]. They had already talked to patient and forwarded to primary. RITY ARCHITECT documented in this encounter Plan of Treatment Not on file documented as of this encounter Visit Diagnoses Diagnosis Depression with suicidal ideation documented in this encounter Care Teams Timber Deadener Relationship Specialty Start Date End Date Eric Narayanan MD PCP - General Family Practice 12/17/14 Galindo Ruelas MD [address] [address] Radiology 12/18/14 documented as of this encounter
--- OUTSIDE RECORDS SUMMARY | 2025-02-22 13:28 | XMS_ITS | Encounter Summary ---
Author Organization [facility] Address [facility] [place] [address] Care Team Providers Care Stock Supervisor Name Role Phone Eric Narayanan MD Primary Care Provider [phone] Galindo Ruelas MD Unavailable [phone] Reason for Visit * Reason Comments Medication Refill Encounter Details Date Type Department Care Team (Late st Contact Info) Description 07/08/2019 Refill [facility] [address] [place] [phone] Naz Hutchison NP Gov. 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 Gender Identity Not on file Sexual Orientation Not on file documented as of this encounter Miscellaneous Notes * Telephone Encounter - Meri Salcedo RPH - 07/08/2019 3:09 PM SLITTER AND CUTTER OPERATOR Needs to be sent to patient's PCP TER AND CUTTER OPERATOR documented in this encounter Plan of Treatment Not on file documented as of this encounter Visit Diagnoses Diagnosis Depression with suicidal ideation documented in this encounter Care Teams Stock Supervisor Relationship Specialty Start Date End Date Eric Narayanan MD PCP - General Family Practice 12/17/14 Galindo Ruelas MD [address] [place] [id number] Radiology 12/18/14 documented as of this encounter
--- OUTSIDE RECORDS SUMMARY | 2025-02-22 13:28 | XMS_ITS | Clinical Summary ---
Author Organization [employer] [facility] Address [facility] [place] [address] Care Team Providers Care Assessment Services Manager Name Role Phone Anahi Alonso ELECTRIC CONTAINER TESTER Unavailable [phone] Eric Narayanan MD Primary Care Provider [phone] Allergies Active Allergy Reactions Criticality Noted Date Comments Escitalopram Hives Low 03/06/2018 Gluten *Unknown 02/05/2025 Medications ibuprofen (ADVIL; MOTRIN) 200 mg tablet Take 800 mg by mouth 4 times daily if needed for Pain. Active aspirin-acetamin ophen-caffeine, 250-250-65 mg, (EXCEDRIN MIGRAINE) 250-250-65 mg tablet Take 2 tablets by mouth every 6 hours if needed for Headache. Max acetaminophen dose: 4000mg in 24 hrs. Active cyclobenzaprine (FLEXERIL) 10 mg tabletIndication s:Fibromyalgia Take 1 Tablet (10 mg) by mouth 3 times daily if needed for Muscle Spasm. 30 Tablet 12 11/08/19 23 Active vilazodone (Viibryd) 40 mg tabletIndication s:PTSD (post-traumatic stress disorder) TAKE 1 TABLET (40 MG) BY MOUTH ONCE DAILY WITH A MEAL. 30 Tablet 6 11/08/19 23 Active doxepin 50 mg capsuleIndicatio ns:Other insomnia TAKE 1 OR 2 CAPSULES BY MOUTH AT BEDTIME 60 Capsule 3 02/07/20 23 Active lamoTRIgine (LAMICTAL) 150 mg tabletIndication s:PTSD (post-traumatic stress disorder) Take 1 Tablet (150 mg) by mouth at bedtime. 30 Tablet 3 02/07/20 23 Active LORazepam (ATIVAN) 1 mg tabletIndication s:PTSD (post-traumatic stress disorder) Take 1 Tablet (1 mg) by mouth every 6 hours if needed for Anxiety. 45 Tablet 3 02/07/20 23 Active OLANzapine (ZYPREXA, FILM COATED TABLET,) 10 mg tabletIndication s:Agitation TAKE 1 TABLET (10 MG) BY MOUTH AT BEDTIME. 30 Tablet 3 02/07/20 23 Active prazosin (MINIPRESS) 5 mg capsuleIndicatio ns:PTSD (post-traumatic stress disorder) Take 2 Capsules (10 mg) by mouth at bedtime. 60 Capsule 3 02/07/20 23 Active aspirin chewable 81 mg tabletIndication s:Coronary artery disease, unspecified vessel or lesion type, unspecified whether angina present, unspecified whether douglas or transplanted heart Chew 1 Tablet (81 mg) by mouth once daily with a meal. 30 Tablet 02/09/2025 7:34 AM CDT 02/08/20 25 Active rosuvastatin (CRESTOR) 10 mg tabletIndication s:Coronary artery disease, unspecified vessel or lesion type, unspecified whether angina present, unspecified whether douglas or transplanted heart Take 1 Tablet (10 mg) by mouth at bedtime. 30 Tablet 02/09/2025 7:34 AM CDT 02/07/20 25 Active Active Problems Problem Noted Date Diagnosed Date Other chest pain 02/06/2025 Obesity, morbid 04/18/2022 Controlled substance agreement signed [...] 07/28/16 and Cymbalta 07/18/16 Previous hospitalizations: 03/06/18 [facility], 05/15/19 [facility] Genesight testing done 05/23/18 Last psych consult 05/09/18 Assessment & Plan (09/06/2021 8:34 PM CDT): In the event pt requires a pelvic exam, do not attempt in exam room. Pt needs to go to OR for light sedation. History of pulmonary embolus (PE) Overview (06/24/2015): unprovoked Fibromyalgia Anxiety Refusal of blood transfusion s as patient is Jew Encounters Date Type Department Care Team Description 02/05/2025 11:29 PM CDT - 02/06/2025 3:30 PM CDT Hospital Encounter [facility] [address] [place] [address] [facility] [place], [place], [facility] Hospitalists Of Eric Gruber MD Ramsey, Lucas Blumer, MD Coronary artery disease, unspecified vessel or lesion type, unspecified whether angina present, unspecified whether douglas or transplanted heart (Primary Dx) Discharge Disposition: Home Self Care 02/05/2025 Travel 02/05/2025 Telephone [facility] [address] [place] [address] Percy Elliott MD from Last 3 Months Family History Medical History Relation Name Comments [...] 4 04/11/2022 Social Connections Answer Date Recorded Do you often feel lonely or isolated from those around you? 0 02/05/2025 Financial Resource Strain Answer Date R ecorded Difficulty of Paying Living Expenses 3 02/06/2025 Difficulty of Paying Living Expenses Not on file 02/06/2025 Food Insecurity Answer Date Recorded Do you worry your food will run out before you are able to buy more? 1 02/05/2025 Transportation Needs Answer Date Record ed Does lack of transportation keep you from medica l appointments? 1 02/05/2025 Does lack of transportation keep you from work, meetings or getting things that you need? 1 02/05/2025 Housing Stability Answer Date Recorded What is your housing situation today? 1 02/05/2025 Interpersonal Safety Answer Date Record ed Are you being hit, kicked, p ushed or yelled at (see row info)? No 02/05/2025 Interpersonal Safety Abuse 12 - 18 Not on file 02/05/2025 Interpersonal Safety Ambulatory Vulnerability No t on file 02/05/2025 Utilities Answer Date Recorded Do you have trouble paying f or utilities (for example, heat, electricity, water, phone)? 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 Gender Identity Not on file Sexual Orientation Not on file Obstetrics History Para Term AB IAB SAB Ectopic Multiple Livin g Live Births 3 Date Outcome GA Total Labor Labor/2nd/3rd Weight Sex Type Anes PTL Jojo A1 A5 Name Clin Last Filed Vital Signs Vital Sign Reading Time Taken Comments Blood Pressure 100/64 02/06/2025 4:00 PM CDT Pulse 63 02/06/2025 4:00 PM CDT Temperature 36.7 C (98.1 F) 02/06/2025 4:00 PM CDT Respiratory Rate 20 02/06/2025 8:16 AM CDT Oxygen Saturation 92% 02/06/2025 4:00 PM CDT Inhaled Oxygen Concentration - - Weight 103.1 kg (227 lb 4.7 oz) 025 11:45 PM CDT Height 162.6 cm (5' 4) 02/05/2025 11:4 5 PM CDT Body Mass Index 39.01 02/05/2025 11:45 PM CDT Plan of Treatment Health Maintenance Due Date Last Done Comments Tetanus booster 1981 HIV for age 15-65 1985 Hepatitis C screening for ag e 18-79 1988 Hepatitis B series for 19+ ( 1 of 3 - 19+ 3-dose series) 1989 Pneumococcal series for age 50+ (1 of 2 - PCV) 1989 Colonoscopy through age 75 10/27/2015 Mammogram for age 45-75 10/27/2015 07/10/2014, 07/10 Zoster (shingles) series for age 50+ (1 of 2) 2020 Pap test for age 21-65 06/25/2021 9, 06/25/2018, 09/04/2014 Depression screening for age 12+ 04/11/2023 04/11/2022, 05/17/2021, 05/17/2021 BMI (ht and wt on same day) for age 18+ 07/11/2023 07/11/2022, 04/11/2022, 08/19/2019, Additional history exists COVID-19 vaccine series ( season) 2025 05/10/2021, 09/22/2020, 08/25/2020 Influenza Vaccine (#1) 2025 Lipids for age 45-75 02/06/2030 02/06/2025, 11/07/2022, 04/04/2022, Additional history exists RSV vaccine for adults or (1 - 1-dose 75+ series) 2045 Procedures Procedure Name Priority Date/Time Associated Diagnosis Comments SCAN CORRESP-EKG RESULTS 02/09/2025 12:42 PM CDT SCAN CORRESP-IMAGING 02/09/2025 12:42 PM CDT ECHO TTE COMPLETE WO CONTRAST Routine 02/06/2025 1:[address] CARDIAC CORONARY ARTERIES CV DUAL READ Routine 02/06/2025 9:[address] CARDIAC CORONARY ARTERIES RAD DUAL READ Routine 02/06/2025 9:[address] CHEST PE STUDY Routine 02/06/2025 9:5 2 AM CDT CBC WITH AUTO DIFFERENTIAL Early AM 02/06/2025 9:06 AM CDT HEMOGLOBIN A1C MONITORING (POCT) Early AM 02/06/2025 9:06 AM CDT LIPID PANEL Early AM 02/06/2025 9:06 AM CDT MAGNESIUM Early AM 02/06/2025 9:06 AM CDT BASIC METABOLIC PANEL Early AM 02/06/2025 9:06 AM CDT CBC WITH AUTO DIFFERENTIAL Early AM 02/06/2025 9:06 AM CDT SCAN-CARDIAC STRIP 02/06/2025 8: 59 AM CDT TROPONIN T (HS) ONE TIME Timed 02/06/2025 2:16 AM CDT EKG 12 LEAD MALU 02/06/2025 12:02 AM CDT TROPONIN T (HS) ACUTE W/2HR REFLEX STAT 02/06/2025 12:02 AM CDT FRUIT STUFFER THIN PREP PAP SCREEN IMAGED Routine 06/25/2018 10:26 AM 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 us Other Clinical Staff OTHER Final Resul t * SCAN CORRESP-IMAGING (02/09/2025 12:42 PM CDT) Anatomical Region Laterality Modality Other Narrative 02/09/2025 12:42 PM CDT Ordered by an unspecified provider. us Other Clinical Staff OTHER Final Resul t * ECHO TTE COMPLETE WO CONTRAST (02/06/2025 1:51 PM CDT) AORTIC VALVE MEAN PG 2 mmHg EJECTION FRACTION 59 % PEAK TR VELOCITY 2.0 m/s LVEDD 3.7 cm EJECTION FRACTION 55 - 60% Anatomical Region Laterality Modality Ultrasound 02/06/2025 10:5 8 AM CDT Narrative 02/06/2025 2:01 PM CDT ECHOCARDIOGRAM ISRAEL KAUR : 1970 54 years Study Date: 02/06/2025 10:58:56 AM Gender: F BP: 106/74 mmHg Height: 163.00 cm BSA: 2.07 m Weight: 103.00 kg Tech: GARFIELD/PRV Referring MD: RACHEL FOX Site: [facility] Reading Location: [facility] IP Patient Location: Inpatient. Procedure: 2D, Color Doppler and Spectral Doppler. Indication for study: CAD Cardiac Rhythm: Normal sinus.Study quality: Good. Final Impressions: 1. Normal LV size, normal wall thickness, normal global systolic function with an estimated EF of 55 - 60%. 2. Right ventricular cavity size is normal, global systolic RV function is normal. 3. Tricuspid valve is normal, mild-moderate tricuspid regurgitation. 4. No pericardial effusion. Chamber Sizes and Function Normal left ventricular size, normal wall thickness, normal global systolic function with an estimated EF of 55 - 60%. No resting regional wall motion abnormality visualized. Left atrial size is normal. Right ventricular cavity size is normal, global systolic RV function is normal. The right atrium is normal. Right atrial volume index is 22 ml/m . Right atrial area is 17 cm . The pulmonary artery is not well visualized. The sinus of Valsalva is normal sized. The ascending aorta is normal sized. Valves, RV Pressures and Diastolic Function The aortic valve is normal in structure, no stenosis and no regurgitation. The mitral valve is normal in structure, trace mitral regurgitation. Normal diastolic function. The tricuspid valve is normal in structure, mild-moderate tricuspid regurgitation. The tricuspid regurgitant velocity is 2.0 m/s, the estimated right ventricular systolic pressure is 16 mmHg plus right atrial pressure. There is normal estimated pulmonary pressure by tricuspid regurgitation velocity and right atrial pressure. The pulmonic valve is normal. Trace pulmonary regurgitation. Masses, Effusion, Shunts There is no pericardial effusion. The inferior vena cava is normal sized, respiratory size variation greater than 50%. No left to right shunting was detected by limited color flow Doppler interrogation of the interatrial septum. MEASUREMENTS AND CALCULATIONS 2-D Measurements and LV Function: LVID (d) 3.7 cm LV FS% (2D) 32 % LVID (s) 2.5 cm LVOT diameter 2.2 cm IVS (d) 0.9 cm HR 54 bpm LVPW (d) 0.8 cm LA Vol index 16 ml/m2 Ao Sinus 3.1 cm RA Vol index 22 ml/m2 Ao Sinus ULN 3.7 cm * RA area 17 cm Asc Ao 3.0 cm RV Basal Diam 3.8 cm Asc Ao ULN 3.8 cm * RV Mid Diam 2.9 cm * Input BSA outside of range, reported values correspond to BSA = 1.9 Diastology: Mitral Tissue Doppler E Peak 0.8 m/s e', Septum 0.09 m/s A Peak 0.4 m/s e', Lateral 0.11 m/s E/A 1.7 E/e' Average 7.95 DT 218 msec Aortic Valve: Vmax 0.9 m/s JAK (V) 3.52 cm VTI 0.23 m JAK (I) 3.32 cm LVOT V max 0.9 m/s Max PG 3 mmHg LVOT VTI 0.20 m Mean PG 2 mmHg SV 76 ml Dim Index 0.87 SV index 37 ml/m CO 4.1 l/min CI 2.0 l/min/m Mitral Valve: MVA 3.5 cm MV P 1/2 63 msec Tricuspid Valve and estimated PA pressures: TR Vmax 2.0 m/s TAPSE 1.6 cm TR maxG 16 mmHg . This study was interpreted by an [facility] accredited facility. Final Procedure Note Michelle Neff MD - 02/06/2025 ECHOCARDIOGRAM ISRAEL KAUR : 1970 54 years Study Date: 02/06/2025 10:58:56 AM Gender: F BP: 106/74 mmHg Height: 163.00 cm BSA: 2.07 m Weight: 103.00 kg Tech: GARFIELD/PRV Referring MD: RACHEL FOX Site: [facility] Reading Location: [facility] Patient Location: Inpatient. Procedure: 2D, Color Doppler and Spectral Doppler. Indication for study: CAD Cardiac Rhythm: Normal sinus.Study quality: Good. Final Impressions: 1. Normal LV size, normal wall thickness, normal global systolic functionwith an estimated EF of 55 - 60%. 2. Right ventricular cavity size is normal, global systolic RV functionis normal. 3. Tricuspid valve is normal, mild-moderate tricuspid regurgitation. 4. No pericardial effusion. Chamber Sizes and Function Normal left ventricular size, normal wall thickness, normal globalsystolic function with an estimated EF of 55 - 60%. No resting regionalwall motion abnormality visualized. Left atrial size is normal. Rightventricular cavity size is normal, global systolic RV function is normal.The right atrium is normal. Right atrial volume index is 22 ml/m . Rightatrial area is 17 cm . The pulmonary artery is not well visualized. Thesinus of Valsalva is normal sized. The ascending aorta is normal sized. Valves, RV Pressures and Diastolic Function The aortic valve is normal in structure, no stenosis and no regurgitation.The mitral valve is normal in structure, trace mitral regurgitation.Normal diastolic function. The tricuspid valve is normal in structure,mild-moderate tricuspid regurgitation. The tricuspid regurgitant velocityis 2.0 m/s, the estimated right ventricular systolic pressure is 16 mmHgplus right atrial pressure. There is normal estimated pulmonary pressureby tricuspid regurgitation velocity and right atrial pressure. Thepulmonic valve is normal. Trace pulmonary regurgitation. Masses, Effusion, Shunts There is no pericardial effusion. The inferior vena cava is normal sized,respiratory size variation greater than 50%. No left to right shunting wasdetected by limited color flow Doppler interrogation of the interatrialseptum. MEASUREMENTS AND CALCULATIONS 2-D Measurements and LV Function: LVID (d) 3.7 cm LV FS% (2D) 32% LVID (s) 2.5 cm LVOT diameter2.2 cm IVS (d) 0.9 cm HR 54bpm LVPW (d) 0.8 cm LA Vol index 16ml/m2 Ao Sinus 3.1 cm RA Vol index 22ml/m2 Ao Sinus ULN 3.7 cm * RA area 17cm Asc Ao 3.0 cm RV Basal Diam3.8 cm Asc Ao ULN 3.8 cm * RV Mid Diam2.9 cm * Input BSA outside of range, reported values correspond to BSA = 1.9 Diastology: Mitral Tissue Doppler E Peak 0.8 m/s e', Septum 0.09 m/s A Peak 0.4 m/s e', Lateral 0.11 m/s E/A 1.7 E/e' Average 7.95 DT 218 msec Aortic Valve: Vmax 0.9 m/s JAK (V) 3.52 cm VTI 0.23 m JAK (I) 3.32 cm LVOT V max 0.9 m/s Max PG 3 mmHg LVOT VTI 0.20 m Mean PG 2 mmHg SV 76 ml Dim Index 0.87 SV index 37 ml/m CO 4.1 l/min CI 2.0 l/min/m Mitral Valve: MVA 3.5 cm MV P 1/2 63 msec Tricuspid Valve and estimated PA pressures: TR Vmax 2.0 m/s TAPSE 1.6 cm TR maxG 16 mmHg . This study was interpreted by an [facility] accredited facility. Final Rachel Fox PA ECHO ORD Final Res ult * CT CARDIAC CORONARY ARTERIES CV DUAL READ (02/06/2025 9:52 AM CDT) Anatomical Region Laterality Modality HEART Computed Tomogra phy 02/06/2025 9:30 AM CDT Narrative 02/06/2025 5:11 PM CDT [facility] Cardiac CT Report Name: ISRAEL KAUR : Scan Date: Accession Number: [id number] Status: Final Electronically signed by Cole Harper 10:39:18 VITALS HEIGHT: 64 in (163 cm) WEIGHT: 227 lbs (103 kgs) BSA: 2.07 m^2 BMI: 39 kg/m^2 BP: 146 / 89 mmHg HEART RHYTHM: Normal Sinus Rhythm FINAL IMPRESSION 1. No severe stenosis identified. 2. Total coronary artery calcium score 19. WILHELM percentile based on age, gender, and race is 87. 3. No pericardial effusion. 4. Normal ascending aorta size. STUDY QUALITY: Study quality is poor. Misalignment artifact(s) due to patient motion noted. CAD-RADS: CAD-RADS Classification 1 (<25% stenosis). CALCIUM SCORING: Total coronary artery calcium score 19. WILHELM percentile based on age, gender, and race is 87. DOMINANCE: Right dominant coronary artery system. LM: The LM is normal. LAD: The proximal LAD has calcified atherosclerosis. There is a <25% proximal LAD stenosis. The mid LAD has calcified atherosclerosis. There is a <25% mid LAD stenosis. There is no plaque in the distal LAD. There is no distal LAD stenosis. D1: The first diagonal is normal. D2: The second diagonal is normal. RAMUS: The ramus is normal. LCX: The proximal LCx has partially calcified atherosclerosis. There is a <25% proximal LCx stenosis. The mid LCx has non-calcified atherosclerosis. There is a <25% mid LCx stenosis. The distal LCx has non-calcified atherosclerosis. There is a <25% distal LCx stenosis. OM1: The first obtuse marginal is normal. OM2: The second obtuse marginal is normal. RCA: The RCA is normal. RIGHT PDA: The right PDA is normal. RIGHT PLB: The right posterolateral branch is normal. OTHER FINDINGS: Thoracic aorta: Aortic sinus maximum cusp-cusp: 31 x 31 x 31 mm. Ascending aorta maximum diameters: 28 x 27 mm. Descending thoracic aorta maximum diameters: 21 x 22 mm. Pericardium: No effusion. Left atrium: Normal contrast opacification. Atrial septum: No evidence of shunt. Pulmonary veins: Normal anatomy. Pulmonary trunk: 30 mm. CALCIUM SCORING TABLE . . Number of Lesions Pattern of Calcium Volume Total Score +-------+ + +--------+ + LM 0 LAD 19 LCx 0 RCA 0 Ramus '-------+ + +--------+ ' SCAN INFO TEST TYPE: Calcium score, Coronary CT Angiography SCANNER DIRECTOR OF RECRUITMENT: SIEMENS SCANNER MODEL: SOMATOM [employer] DOSE REDUCTION ALGORITHM: Helical with dose modulation PHASE UNITS: ms START PHASE: 280 ms END PHASE: 350 ms EKG GATED: Yes PRE-CONTRAST: Yes POST-CONTRAST: Yes GENERAL CONTRAST AGENT CONTRAST AGENT USED?: Yes TYPE: Omnipaque 350 DOSE: 150 ml RATE: 7.5 ml/s ROUTE: IV ARM: Left BOLUS TECHNIQUE: Single Phase SERUM CREATININE: 0.96 mg/dL GFR: 64.37 ml/min/1.73m^2 CREATININE DATE: CT CONTRAST REACTION: None MEDICATION ADMINISTERED DURING SCAN TYPE: Nitroglycerin, sublingual, B-Blockers NITROGLYCERIN, TOTAL DOSE: 0.8 mg B-JUAYN TYPE: Oral B-JUANY NAME, ORAL: Metoprolol tartrate B-BLOCKERS, ORAL DOSE: 100 mg SETUP PATIENT TYPE: Inpatient REASON(S) FOR SCAN: Chest pain REFERRING PHYSICIAN: BECCA MARK ATTENDING PHYSICIAN: [facility] TECHNOLOGIST: Raymond Mercado BILLING Patient Account [id number] Report generated by [employer], a product of [employer] Rachel HUITRON CT Final Res ult * CT CARDIAC CORONARY ARTERIES RAD DUAL READ (02/06/2025 9:52 AM CDT) Anatomical Region Laterality Modality HEART Computed Tomogra phy 02/07/2025 5:37 AM CDT Narrative 02/07/2025 5:37 AM CDT For Patients: As a result of the Cures Act, medical imaging exams and procedure reports are released immediately into your electronic medical record. You may view this report before your referring provider. If you have questions, please contact your health care provider. Findings: Pulmonary embolism: None. Visualized lungs and pleural spaces: Unremarkable. Visualized mediastinum: Unremarkable. Other abnormalities: None. Impression: No acute or significant non-cardiac/non-arterial findings. Dictated by Lui Crews MD @ 02/07/2025 5:37:31 AM Please note that all CT scans at this facility use dose modulation, iterative reconstruction, and/or weight-based dosing when appropriate to reduce radiation dose to as low as reasonably achievable. Dictated by: Lui Crews MD @ 02/07/2025 05:37:34 (Electronically Signed) Procedure Note Lui Crews MD - 02/07/2025 For Patients: As a result of the Cures Act, medical imagingexams and procedure reports are released immediately into your electronicmedical record. You may view this report before your referring provider.If you have questions, please contact your health care provider. Findings: Pulmonary embolism: None. Visualized lungs and pleural spaces: Unremarkable. Visualized mediastinum: Unremarkable. Other abnormalities: None. Impression: No acute or significant non-cardiac/non-arterial findings. Dictated by Lui Crews MD @ 02/07/2025 5:37:31 AM Please note that all CT scans at this facility use dose modulation,iterative reconstruction, and/or weight-based dosing when appropriate toreduce radiation dose to as low as reasonably achievable. Dictated by: Lui Crews MD @ 02/07/2025 05:37:34 (Electronically Signed) Rachel HUITRON CT Final Res ult * CT Chest PE study TODAY (02/06/2025 9:52 AM CDT) Anatomical Region Laterality Modality CHEST, THORAX, HEART Computed To mography 02/06/2025 10:4 4 AM CDT Impressions 02/06/2025 10:44 AM CDT 1. No pulmonary emboli. Low lung volumes mild ground-glass opacities could be related to mild pulmonary edema. Please note that all CT scans at this facility use dose modulation, iterative reconstruction, and/or weight-based dosing when appropriate to reduce radiation dose to as low as reasonably achievable. Dictated by Blanche Aguilar MD @ 02/06/2025 10:44:53 AM (Electronically Signed) Narrative 02/06/2025 10:44 AM CDT For Patients: As a result of the Cures Act, medical imaging exams and procedure reports are released immediately into your electronic medical record. You may view this report before your referring provider. If you have questions, please contact your health care provider. INDICATION: Dyspnea on exertion TECHNIQUE: CT chest with 150 mL Omnipaque 350 COMPARISON: None. FINDINGS: Lungs and pleura: Low lung volumes. Bilateral mild basilar atelectasis no consolidation. Mild ground-glass opacities could be related to pulmonary edema Heart and vasculature: Heart size is normal. Thoracic aorta and pulmonary artery are normal in caliber. No pulmonary emboli. Lymph nodes/mediastinum: No mediastinal, hilar, or axillary adenopathy. Chest wall: No masses. Bones: Unremarkable for age. Procedure Note Blanche Aguilar MD - 02/06/2025 For Patients: As a result of the Century Cures Act, medical imagingexams and procedure reports are released immediately into your electronicmedical record. You may view this report before your referring provider.If you have questions, please contact your health care provider. INDICATION: Dyspnea on exertion TECHNIQUE: CT chest with 150 mL Omnipaque 350 COMPARISON: None. FINDINGS: Lungs and pleura: Low lung volumes. Bilateral mild basilar atelectasis noconsolidation. Mild ground-glass opacities could be related to pulmonaryedema Heart and vasculature: Heart size is normal. Thoracic aorta and pulmonaryartery are normal in caliber. No pulmonary emboli. Lymph nodes/mediastinum: No mediastinal, hilar, or axillary adenopathy. Chest wall: No masses. Bones: Unremarkable for age. IMPRESSION: 1. No pulmonary emboli. Low lung volumes mild ground-glass opacities couldbe related to mild pulmonary edema. Please note that all CT scans at this facility use dose modulation,iterative reconstruction, and/or weight-based dosing when appropriate toreduce radiation dose to as low as reasonably achievable. Dictated by Blanche Aguilar MD @ 02/06/2025 10:44:53 AM (Electronically Signed) Eric Gruber MD CT Fin al Result * (ABNORMAL) CBC WITH AUTO DIFFERENTIAL (02/06/2025 9:06 AM CDT) WHITE BLOOD COUNT 4.8 4.5 - 11.0 thou/cu mm 02/06/2025 9:46 AM CDT [facility] RED BLOOD COUNT 3.99(L) 4.00 - 5.20 mil/cu mm 02/06/2025 9:46 AM CDT [facility] HEMOGLOBIN 12.5 12.0 - 16.0 g/dL 02/06/2025 9:46 AM CDT [facility] HEMATOCRIT 38.4 33.0 - 51.0 % 02/06/2025 9:46 AM CDT [facility] MCV 96 80 - 100 fL 02/06/2025 9:46 AM CDT [facility] MCH 31.3 26.0 - 34.0 pg 02/06[facility]25 [facility] MCHC 32.6 32.0 - 36.0 g/dL 02/06/2025 9:46 AM [facility] RDW 13.2 11.5 - 15.5 % 02/06/2025 9:46 AM [facility] PLATELET COUNT 203 140 - 440 thou/cu mm 02/06/2025 9:46 AM [facility] MPV 9.0 6.5 - 11.0 fL 02/06/2025 9:46 AM [facility] LABORATORY NRBC 0.0 % 02/06/2025 9[facility] ABS NRBC 0.0 thou /cu mm 02/06/2025 9:46 AM [facility] TRAL LABORATORY % NEUT 54.8 % 02/06/2025 9:46 AM [facility] TRAL LABORATORY % LYMPH 35.3 % 02/06/2025 9:46 AM [facility] TRAL LABORATORY % MONO 5.5 % 02/06/2025 9:46 AM [facility] TRAL LABORATORY % EOS 3.2 % 02/06/2025 9:46 AM [facility] TRAL LABORATORY % BASO 0.8 % 02/06/2025 9:46 AM [facility] TRAL LABORATORY % IMMATURE GRAN (METAS,MYELOS,PA OS) 0.4 % 02/06/2025 9:46 AM CDT [facility] TRAL LABORATORY ABSOLUTE NEUTROPHILS 2.6 1.7 - 7.0 thou/cu mm 02/06/2025 9:46 AM [facility] TRAL LABORATORY ABSOLUTE LYMPHOCYTES 1.7 0.9 - 2.9 thou/cu mm 02/06/2025 9:46 AM CDT [facility] TRAL LABORATORY ABSOLUTE MONOCYTES 0.3 <0.9 thou/cu mm 02/06/2025 9:46 AM CDT [facility] TRAL LABOR[facility]ORY ABSOLUTE EOSINOPHILS 0.2 <0.5 thou/cu mm 02/06/2025 9:46 AM CDT [facility] TRAL LABOR[facility]ORY ABSOLUTE BASOPHILS 0.0 <0.3 thou/cu mm 02/06/2025 9:46 AM CDT [facility] TRAL LABORATORY ABSOLUTE IMMATURE GRANULOCYTES(MET ,MYELOS,PROS) 0.0 <0.3 thou/cu mm 02/06/2025 9:46 AM CDT [facility] LABORATORY Blood BLOOD SPECIMEN / Unknown Venipuncture / Unknown 02/06/2025 9:06 AM CDT 02/06/2025 9:23 AM CDT Eric Gruber MD HEMATOLOGY Fin al Result Performing Organization Address City/[facility]/ZIP Co de Phone Number [facility]ORY [address] [place] [address], [place] * Magnesium AM (02/06/2025 9:06 AM CDT) MAGNESIUM 2.3 1.6 - 2.6 mg/dL 02/06/2025 9:58 AM CDT [facility] LABORATORY Blood BLOOD SPECIMEN / Unknown Venipuncture / Unknown 02/06/2025 9:06 AM CDT 02/06/2025 9:23 AM CDT Eric Gruber MD CHEMISTRY Fin al Result [facility] [address] [place] [address], [place] * Screening hemoglobin A1c AM (order if not done w/in 3 mos) (02/06/2025 9:06 AM CDT) HEMOGLOBIN A1C MONITORING (POCT) 5.7 <=6.4 % 02/06/2025 2:42 PM CDT [facility] LABORATORY Blood BLOOD SPECIMEN / Unknown Venipuncture / Unknown 02/06/2025 9:06 AM CDT 02/06/2025 9:23 AM CDT [facility] LABORATORY - 02/06/2025 2:42 PM CDT (<=6.9%) Indicates good control (7.0% to 7.9%) Indicates fair control (>=8.0%) Indicates poor control NOTE: These thresholds are guidelines and individual targets may vary. Falsely low levels may be seen with: Recent Transfusion, Recent Significant Blood Loss, Hemolytic Diseases, or Falsely elevated levels may be seen with: Untreated Anemias, Splenectomy us Eric Gruber MD CHEMISTRY Fin al Result [facility] [address] [place] [address], * (ABNORMAL) Lipid Panel AM (02/06/2025 9:06 AM CDT) CHOLESTEROL,TOTAL 207(H) 100 - 199 mg/dL 02/06/2025 9:58 AM CDT [facility] TRAL LABORATORY Comment: Cholesterol, Total Reference Ranges Desirable <200 mg/dL Borderline 200-239 mg/dL High >=240 mg/dL TRIGLYCERIDES 148 <150 mg/dL 02/06/2025 9:58 AM T [facility] TRAL LABORATORY HDL CHOLESTEROL 37(L) >40 mg/dL 9:58 AM T [facility] TRAL LABORATORY NON-HDL CHOLESTEROL 170(H) <145 mg/dl 02/06/2025 9:58 AM T [facility] TRAL LABORATORY CHOL/HDL RATIO 5.59(H) <4.50 02/06/2025 9:58 AM CDT [facility] TRAL LABORATORY LDL CHOLESTEROL 140(H) <=130 mg/dL 02/06/2025 9:58 AM T [facility] TRAL LABORATORY VLDL CHOLESTEROL 30 <=30 mg/dL 02/06/2025 9:58 AM CDT [facility] TRAL LABORATORY PROVIDER ORDERED STATUS RANDOM 02/06/2025 9:58 AM T [facility] Blood BLOOD SPECIMEN / Unknown Venipuncture / Unknown 02/06/2025 9:06 AM CDT 02/06/2025 9:23 AM CDT us Eric Gruber MD CHEMISTRY Fin al Result [facility] [address] [place] [address], * (ABNORMAL) Basic metabolic panel AM (02/06/2025 9:06 AM CDT) SODIUM 141 136 - 145 mmol/L 02/06/2025 9:58 AM CDT [facility] TRAL LABORATORY POTASSIUM 3.7 3.5 - 5.1 mmol/L 02/06/2025 9:58 AM CDT [facility] TRAL LABORATORY CHLORIDE 103 98 - 107 mmol/L 02/06/2025 9:58 AM CDT [facility] CO2,TOTAL 26 22 - 29 mmol/L 02/06/2025 9:58 AM CDT [facility] TRAL LABORATORY ANION GAP 12 5 - 18 02/06/2025 9:58 AM T [facility] GLUCOSE 121(H) 70 - 99 mg/dL 02/06/2025 9:58 AM CDT [facility] TRAL LABORATORY CALCIUM 8.9 8.8 - 10.4 mg/dL 02/06/2025 9:58 AM CDT [facility] TRAL LABORATORY Comment: Reference ranges for this test were updated on 04/08/2024 to reflect our healthy population more accurately. Reference range changes are not retroactively applied to results, but previous results using the same methodology can be interpreted in the context of the new reference range. BUN 8 6 - 20 mg/dL 02/06/2025 9:58 AM CDT [facility] TRAL LABORATORY CREATININE 0.99(H) 0.50 - 0.90 mg/dL 02/06/2025 9:58 AM T [facility] TRAL LABORATORY BUN/CREAT RATIO 8(L) 10 - 20 9:58 AM CDT [facility] TRAL LABORATORY eGFR 68(L) >90 mL/min/1. 73m2 02/06/2025 9:58 AM CDT [facility] TRAL LABORATORY Comment:As of 2021, eG FR is calculated by the CKD-EPI creatinine equation without race adjustment. eGFR can be influenced by muscle mass, exercise, and diet. The reported eGFR is an estimation only and is only applicable if the renal function is stable. Blood BLOOD SPECIMEN / Unknown Venipuncture / Unknown 02/06/2025 9:06 AM CDT 02/06/2025 9:23 AM CDT Eric Gruber MD CHEMISTRY Fin al Result Performing Organization Address [facility] Co de Phone Number [facility] [address] [place] [address], * SCAN-CARDIAC STRIP (02/06/2025 8:59 AM CDT) Scanner OTHER Final Result * TROPONIN T (HS) ONE TIME (02/06/2025 2:16 AM CDT) Pathologist [facility] TROPONIN T HS <6 6-10 ng/L ng/L 02/06/2025 2:44 AM CDT [facility] LABORATORY Blood BLOOD SPECIMEN / Unknown Venipuncture / Unknown 02/06/2025 2:16 AM CDT 02/06/2025 2:22 AM CDT Eric Gruber MD CHEMISTRY Fin al Result Performing Organization Address [facility]/ZIP Co de Phone Number [facility] [employer]umed [facility] LABORATORY [address] [place] [address], * 12 Lead EKG (02/06/2025 12:02 AM CDT) Pathologist [facility] Interpretation Normal sinus rhythm Right axis deviation Incomplete right bundle branch block Possible Right ventricular hypertrophy Nonspecific T wave abnormality Abnormal ECG No previous ECGs available BEYOND NOW Ventricular Rate 78 BPM BEYOND NOW Atrial Rate 78 BPM BEYOND NOW P-R Interval 162 ms BEYOND NOW QRS Duration 92 ms BEYOND NOW QT 412 ms BEYOND NOW QTc 469 ms BEYOND NOW P Wallis 32 degrees BEYOND NOW R Wallis 129 degrees BEYOND NOW T Wallis 60 degrees BEYOND NOW 02/06/2025 12:0 2 AM CDT 02/06/2025 9:58 PM CDT us Eric Gruber MD EKG ORD Fin al Result BEYOND NOW [place], [place] * TROPONIN T (HS) ACUTE W/2HR REFLEX (02/06/2025 12:02 AM CDT) TROPONIN T HS <6 6-10 ng/L ng/L 02/06/2025 12:34 AM CDT [facility] Blood BLOOD SPECIMEN / Unknown Butterfly / Unknown 02/06/2025 12:02 AM CDT 02/06/2025 12:08 AM CDT Narrative [facility] LABORATORY-CENTRAL LABORATORY - 02/06/2025 12:34 AM CDT hs-cTnT (Elecsys Troponin T Gen 5) concentration (s) above the sex-specific 99th percentile (16 ng/L or greater for males or 11 ng/L or greater for females) are indicative of myocardial injury. If initial hs-cTnT <=100 ng/L at presentation, a 0h/2h ABSOLUTE (ng/L) delta change (rising or falling) of >=10 ng/L suggests a significant change, whereas a 0h/2h delta change <=3 ng/L suggests no significant change. If initial hs-cTnT >100 ng/L at presentation, a 0h/2h/ RELATIVE (percent, %) delta change of 20% is suggested to distinguish patients with acute vs. chronic myocardial injury. There are multiple etiologies that can cause hs-cTnT increases above the 99th percentile (myocardial injury) other than acute myocardial infarction. Clinical context and careful clinical evaluation are critical for diagnosis and risk-stratification. The diagnosis of acute myocardial infarction requires a rising and/or falling pattern in hs-cTnT concentrations with at least one value above the sex-specific 99th percentile PLUS at least one of the following clinical criteria: ischemic symptoms, new or presumed new significant ST-T wave changes or new LBBB, development of pathological Q waves, imaging evidence of new loss of viable myocardium or new regional wall motion abnormality, or identification of intracoronary atherothrombosis or an acute angiographic culprit on coronary angiography. In appropriate low-risk patients with a non-ischemic electrocardiogram without active chest pain with a symptom onset >3-hours without recurrence, a single initial hs-cTnT<6 ng/L identifies patient with a very low risk in emergency department patient population. Eric Gruber MD CHEMISTRY Fin al Result [facility] [address] [place] [address], * FRUIT STUFFER THIN PREP PAP SCREEN IMAGED (06/25/2018 10:26 AM AUTOMATIC MACHINES SUPERVISOR) Case Report Gynecologic Cytology Report Case: [id number] Authorizing Provider: Tiana Lester NP Collected: 06/25/2018 1026 Ordering Location: [facility] Received: 06/25/2018 1026 [facility] First Screen: Norman Haines Pathologist: Hector Washington Jr., MD Specimen: FRUIT STUFFER ThinPrep Vial Screening, Cervical 07/09/2018 3:52 PM AUTOMATIC MACHINES SUPERVISOR [facility] INTERPRETATION/ RESULT NEGATIVE FOR INTRAEPITHELIAL LESION OR MALIGNANCY (NIL) (none) 07/09/2018 3:52 PM AUTOMATIC MACHINES SUPERVISOR [facility] at 1552 AUTOMATIC MACHINES SUPERVISOR OTHER NON-NEOPLASTIC FINDING(S) Reactive cellular changes associated with inflammation/repa ir 07/09/2018 3:52 PM AUTOMATIC MACHINES SUPERVISOR [facility] SPECIMEN ADEQUACY Satisfactory for evaluation Endocervical component present 07/09/2018 3:52 PM AUTOMATIC MACHINES SUPERVISOR [facility] HPV REQUEST HPV and PAP 07/09/2018 3:52 PM AUTOMATIC MACHINES SUPERVISOR [facility] Date of LMP 05/31/2018 07/09/2018 3:52 PM AUTOMATIC MACHINES SUPERVISOR [facility] Last Pap Date 201407/09/2018 3:52 PM AUTOMATIC MACHINES SUPERVISOR [facility] Last Pap Result LSIL 9 3:52 PM AUTOMATIC MACHINES SUPERVISOR [facility] LAB[facility] Abnormal Pap or Loyall Bx in last 5 years No 07/09/2018 3:52 PM AUTOMATIC MACHINES SUPERVISOR [facility] Menstrual Status Regular Periods 07/09/2018 3:52 PM AUTOMATIC MACHINES SUPERVISOR [facility] Loyall Bx Done Today No 07/09/2018 3:52 PM AUTOMATIC MACHINES SUPERVISOR [facility] Additional Information None given 07/09/2018 3:52 PM AUTOMATIC MACHINES SUPERVISOR [facility] Automated Review Successful 07/09/2018 3:52 PM AUTOMATIC MACHINES SUPERVISOR [facility] Comment:Specimen processed s uccessfully by automated senior inspector device, StupilPrep Imaging System, [employer] ANCILLARY TESTING FRUIT STUFFER HPV Ordered, Please see separate report 07/09/2018 3:52 PM [facility] Note The pap test is [...] lesions. Cytology is screened and interpreted at [facility] - [address], [place] [address] and [facility] - [address]; [place] [address] and [facility] - [address]; [place] [address] and [facility] [address]; [place] [address] 07/09/2018 3:52 PM AUTOMATIC MACHINES SUPERVISOR [facility] Other (Cervical) 06/25/2018 10:26 AM AUTOMATIC MACHINES SUPERVISOR 06/25/2018 10:26 AM AUTOMATIC MACHINES SUPERVISOR us Tiana Lester NP PATHOLOGY/CYTOLOGY Final Resu lt [facility] [address] [place] [address], [place] * HM MAMMOGRAPHY [] (07/10/2014) MAMMOGRAM Anatomical Region Laterality Modality Other Other Eric Narayanan MD HEALTH MAINT RESULTS Final R esult from Last 3 Months or Most Recently Relevant to Health Maintenance Insurance [employer] [place] Advance Directives * Full Code (Latest Code Status on File) Date Activated Date Inactivated Comments 02/05/2025 11:39 PM 02/06/2025 8:13 PM Question Answer Comments Code Status Discussion: Reviewed Preferences * Full Code Date Activated Date Inactivated Comments 06/04/2019 11:46 PM 06/07/2019 3:41 PM Question Answer Comments Code Status Discussion: Discussed * Full Code Date Activated Date Inactivated Comments 09/25/2005 10:42 PM 09/27/2005 3:58 PM * Full Code Date Activated Date Inactivated Comments 09/25/2005 9:22 PM 09/25/2005 10:42 PM * Full Code Date Activated Date Inactivated Comments 09/25/2005 9:07 PM 09/25/2005 9:08 PM Care Teams Assessment Services Manager Relationship Specialty Start Date End Date Eric Narayanan MD [address] [place] [id number] PCP - General Family Practice 01/31/25 Anahi Alonso NP [address] [place] [address] Mental Health Provider Mental Health 05/23/18
--- OUTSIDE RECORDS SUMMARY | 2025-02-22 13:28 | XMS_ITS | Clinical Summary ---
Author Organization [facility] Address [address], [place] [address] Care Team Providers Care General Office Dispatcher Name Role Phone Unavailable Primary Care Provider [...] each transition of care or referral. [facility] Allergies No known active allergies Medications cyclobenzaprine [...] f 2) 2020 COVID-19 Vaccine (4 - 2024-2 6 season) 2025 05/10/2021, 09/22/2020, 08/25/2020 Influenza Vaccine [...]
--- OUTSIDE RECORDS SUMMARY | 2025-02-22 13:28 | XMS_ITS | Clinical Summary ---
Author Organization [facility] Address [address] [place] [address]. [place] [address] Care Team Providers Care Inspector Circuitry Negative Name Role Phone Eric Narayanan MD Primary Care Provider [phone] Galindo Ruelas MD Unavailable [phone] Allergies Active Allergy Reactions Criticality Noted Date [...] on file Legal Sex Female 4:20 AM PEEL OVEN TENDER Gender Identity Not on file Sexual Orientation Not on file Last Filed Vital Signs Vital Sign Reading Time Taken Comments Blood Pressure 115/76 05/25/2019 6:00 AM PEEL OVEN TENDER Pulse 82 05/25/2019 6:00 AM PEEL OVEN TENDER Temperature 35.9 C (96.7 F) 05/25/2019 6:00 AM PEEL OVEN TENDER Respiratory Rate 14 05/25/2019 6:00 AM PEEL OVEN TENDER Oxygen Saturation 96% 05/25/2019 6:00 AM PEEL OVEN TENDER Inhaled Oxygen Concentration - - Weight 98.3 kg (216 lb 11.2 oz) 05/25/2019 7:38 AM PEEL OVEN TENDER Height 162.6 cm (5' 4) 03/06/2018 11:1 [...] PLANNING 03/07/2023 03/07/2018 COVID-19 VACCINE (4 - 2024-2 6 season) 2025 05/10/2021, 09/22/2020, 08/25/2020 INFLUENZA VACCINE (#1) 2025 HPV VACCINE (No Doses Required) Completed MENINGITIS VACCINE Aged Out No longer eligible based on patient's age to complete this topic Advance Directives For more information, please contact: [phone] * Full Code (Latest Code Status on [...] or legal decision maker available Care Teams Inspector Circuitry Negative Relationship Specialty Start Date End Date Eric Narayanan MD PCP - General Family Practice 12/17/14 Galindo Ruelas MD [address] [place] [id number] Radiology 12/18/14
--- OUTSIDE RECORDS SUMMARY | 2025-02-22 13:28 | XMS_ITS | Clinical Summary ---
Author Organization [facility] Address [address] [place] [id number] Phone Care Team Providers Care Field Sales Executive Name Role Phone Elsewhere, Pcp Primary Care [...] on file Legal Sex Female 9:35 AM CODING TECH Gender Identity Not on file Sexual Orientation Not on file Primary [place] Affiliation Non Jordanian (And Non-FED Nithin gnized Jordanian) Obstetrics History Last Filed Vital Signs Vital [...] patient's age to complete this topic Insurance [employer] Care Teams Field Sales Executive Relationship Specialty Start Date End Date Elsewhere, Pcp PCP - General 08/15/01
[2025-02-22 13:46] VITALS: BP 129/79; PULSE 88; RESP 18; TEMP 36.9; O2SAT 97; BMI 37.8
--- NOTE | 2025-02-22 14:08 | CRLHL7_ITS ---
For Patients: As a result of the Century Cures Act, medical imaging exams and procedure reports are released immediately into your electronic medical record. You may view this report before your referring provider. If you have questions, please contact your health care provider. INDICATION: Left anterior upper thigh pain. COMPARISON: None. TECHNIQUE: A compression venous ultrasound exam was performed of the left lower extremity using alicea-scale imaging, color Doppler, and spectral Doppler analysis. FINDINGS: Sonographic imaging of the left lower extremity demonstrates normal compressibility and color Doppler venous blood flow within the common femoral, femoral, deep femoral, and proximal greater saphenous veins. At a lower level the popliteal, peroneal, and posterior tibial veins also show normal compressibility and color Doppler venous blood flow. The gastrocnemius and small saphenous veins demonstrate normal compressibility. Limited imaging of the contralateral groin demonstrates a normal spectral waveform and color Doppler venous blood flow within the right common femoral vein. IMPRESSION: 1. Negative for acute DVT in the left lower extremity. 2. Evaluation of the left anterior thigh in the area of pain demonstrates no sonographic abnormality. Dictated by Betty Soto MD @ 02/22/2025 5:06:07 PM (Electronically Signed)
[2025-02-22 14:35] LABS: Lactate* 1.6 mmol/L (0.5-1.9)
[2025-02-22 14:38] LABS: Hematocrit* 39.8 % (33.0-51.0); Hemoglobin* 13.1 gm/dL (12.0-16.0); Immature Granulocytes Abs Auto 0.03 K/uL (0.00-0.30); Immature Granulocytes Pct Auto 0.6 %; Lymphocytes Absolute Auto 1.54 K/uL (0.90-2.90); Mean Corpuscular HGB Conc 33 gm/dL (32-36); Mean Corpuscular Hemoglobin 32 pg (26-34); Mean Corpuscular Volume 96 fL (80-100); RDW Coefficient of Variation % 13.1 % (11.5-15.5); Red Blood Count* 4.13 m/uL (4.00-5.20); White Blood Count* 4.67 K/uL (4.50-11.00)
[2025-02-22 14:39] LABS: Slide Review Reflex No
--- NOTE | 2025-02-22 14:45 | ED.GENADULT ---
HPI - General Adult General Chief complaint: Extremity Pain/Injury, Lower Stated complaint: L leg pain- blood clot? Time Seen by Provider: 02/22/25 13:53 Source: patient Mode of arrival: ambulatory Limitations: no limitations History of Present Illness HPI narrative: 54-year-old female presenting today with leg pain. Pain is located over the anteromedial upper left thigh. Pain started yesterday. Patient is concerned because the pain is very reminiscent of when she had a blood clot in her right thigh approximately 8 years ago. She wants to make sure that she does not have a blood clot today. Nothing makes the pain better or worse. The pain does not radiate. She denies swelling or changes in the color of her skin, no rash. Patient states that the moment that she entered the exam room she developed chest pain and shortness of breath. She states that the symptoms have progressively gotten worse in the last 10 minutes. Her past medical history is a complicated and significant for PTSD, fibromyalgia, anxiety and depression. Patient was seen in our ER at the beginning of February with chest pain and she was transferred to have it where she was admitted overnight. She had a CT PE study which was negative, a CT coronary angiogram which showed nonobstructive coronary artery disease but no focal stenosis, a TTE which was essentially unremarkable. She was discharged home on 02/06 and started on a daily aspirin, daily rosuvastatin. Patient tells me that she believes she has an angiogram scheduled for the end of March, but she cannot remember if it is actually an angiogram or something else. Patient tells me that she is uncertain whether or not the chest pain and shortness of breath she has developed in the last 10 minutes is related to anxiety. Related Data Home Medications ?Medication ?Instructions ?Recorded ?Confirmed cyclobenzaprine 10 mg tablet 10 mg PO 3XD 03/09/23 02/22/25 doxepin 50 mg capsule mg PO 03/09/23 02/12/25 lamotrigine 150 mg tablet 150 mg PO DAILY 03/09/23 02/12/25 lorazepam 1 mg tablet 1 mg PO 3XD 03/09/23 02/22/25 olanzapine 10 mg tablet 10 mg PO QPM 03/09/23 02/22/25 vilazodone 40 mg tablet (Viibryd) 40 mg PO DAILY 10/06/23 09/21/25 prazosin 5 mg capsule 10 mg PO DAILY 02/05/25 02/22/25 aspirin 81 mg chewable tablet PO 02/12/25 02/12/25 Previous Rx's ?Medication ?Instructions ?Recorded nitroglycerin 0.4 mg sublingual 0.4 mg sublingual Q5M PRN chest 02/12/25 tablet pain #30 tabs omeprazole 20 mg capsule,delayed 20 mg PO QDAY #90 caps 02/12/25 release ondansetron HCl 4 mg tablet 4 mg PO QDAY PRN nausea and 02/12/25 vomiting #14 tabs rosuvastatin 10 mg tablet 10 mg PO QPM #90 tabs 02/12/25 Allergies Allergy/AdvReac Type Severity Reaction Status Date / Time escitalopram Allergy Intermediate Hives Verified 02/22/25 13:51 Review of Systems Status of ROS: Reports: 10 or more systems reviewed and unremarkable except as noted in History and below [facility] Medical History Prediabetes (02/2025) ?R73.03 - Prediabetes (ICD-10) Dyslipidemia ?E78.5 - Hyperlipidemia, unspecified (ICD-10) Coronary artery disease (02/2025) ?I25.10 - Atherosclerotic heart disease of [place] coronary artery without angina pectoris (ICD-10) History of echocardiogram (02/2025) ?Z92.89 - Personal history of other medical treatment (ICD-10) History of abnormal cervical Pap smear ?Z87.42 - Personal history of other diseases of the female genital tract (ICD-10) History of DVT (deep vein thrombosis) ?Z86.718 - Personal history of other venous thrombosis and embolism (ICD-10) Elevated hemoglobin A1c ?R73.09 - Other abnormal glucose (ICD-10) Insomnia ?G47.00 - Insomnia, unspecified (ICD-10) Chronic anemia ?D64.9 - Anemia, unspecified (ICD-10) Chest pain ?R07.9 - Chest pain, unspecified (ICD-10) Depression ?F32.A - Depression, unspecified (ICD-10) Obesity ?E66.9 - Obesity, unspecified (ICD-10) PTSD (post-traumatic stress disorder) (2019) ?F43.10 - Post-traumatic stress disorder, unspecified (ICD-10) Anxiety ?F41.9 - Anxiety disorder, unspecified (ICD-10) Fibromyalgia ?M79.7 - Fibromyalgia (ICD-10) History of pulmonary embolus (PE) (~2018) ?Z86.711 - Personal history of pulmonary embolism (ICD-10) Surgical History History of vein stripping ?Z98.890 - Other specified postprocedural states (ICD-10) Family History Father Myocardial infarction, Onset Age: 52 Diabetes Sister Raynaud's disease Anxiety disorder Mother Autoimmune disorder Stroke, Onset Age: 60 Social History Narrative: 2023, 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, 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 children, lives with adult son in [place], 3 adult children Exercise walks once a week Lifetime nonsmoker Rare alcohol use No drug use ever What is your current living situation?: I presently have a place to live Problems where you live: no known problems In the past 12 months, utilities in danger of being shut off: no In past 12 months, lack of transportation kept you from medical appts, meetings, work, or getting things needed for daily living: no In the past 12 mos, have been you worried that your food would run out before you had money to buy more?: never true In the past 12 mos, the food you bought just didn't last and you didn't have money to buy more?: never true Smoking Status: Never smoker Do you use any of these nicotine containing products: None Second hand tobacco smoke exposure: No How often do you have a drink containing alcohol: never AUDIT-C Alcohol total score: 0 Non-prescribed substance use: denies use How often does anyone, including family, friends and others, physically hurt you: never How often does anyone, including family, friends and others, insult or talk down to you: never How often does anyone, including family, friends and others, threaten you with harm: never How often does anyone, including family, friends and others, scream or curse at you: never service: No Exam Narrative: Exam Narrative: Obese, well-developed patient in no acute distress. Alert and oriented. Answers questions appropriately. Mood and affect are appropriate. Thoughts are goal oriented and rational. No tangential or magical thinking noted. Patient speaks in full sentences without needing to catch her breath. HEENT: Normocephalic atraumatic. Pupils are equally round reactive to light. Extraocular muscles are intact. Conjunctivae are moist without any icterus noted. Moist mucous membranes. Cardiovascular: Heart is regular rate and rhythm S1 and S2 are present without any murmurs. Lungs: Clear to auscultation bilaterally no wheezes rhonchi or rales are appreciated. Patient takes deep breaths without any worsening of her discomfort. Abdomen: Soft and nontender nondistended with normal bowel sounds. Extremities: Bilateral lower extremities are without edema. Normal DP and PT pulses. No tenderness to palpation of the thigh. No swelling, no skin changes. Skin: Well perfused. Const: Vital Signs, click to edit/add: Vital Signs - 24 hr 02/22/25 13:46 Temperature 98.4 F Pulse Rate [Right Pulse Oximeter] 88 Respiratory Rate 18 Blood Pressure [Ri ght Upper Arm] 129/79 Pulse Oximetry 97 Oxygen Delivery Me thod Room Air Course Course ED Course: I did give the patient 0.5 mg of IV Ativan-this did seem to help her discomfort. EKG, read by me, shows normal sinus rhythm with a pulse of 79. She does have a right axis deviation which is not new. She has inverted T-waves in V1 and V2 which are also not new. CBC is normal. Normal D-dimer. Chemistries are unremarkable, potassium slightly low at 3.3. Normal lactate. LFTs unremarkable. CRP 1.9. Normal lipase. Normal troponin. Repeat EKG she does not show any changes. Repeat troponin is 0. Lower extremity ultrasound is unremarkable. Given that her symptoms improved with Ativan in her recent workup, I do not think that a 3rd troponin is necessary. Vital Signs Vital signs: Initial Vital Signs Temperature 98.4 F 02/22/25 13:46 Temperature Source Temporal Artery Scan 02/22/25 13:46 Pulse Rate 88 02/22/25 13:46 Pulse Rhythm Regular 02/22/25 13:46 Pulse Strength 3+ Normal 02/22/25 13:46 Respiratory Rate 18 02/22/25 13:46 Blood Pressure 129/79 02/22/25 13:46 Blood Pressure Mean 95 09/21/25 13:46 Blood Pressure Position Sitting 02/22/25 13:46 Pulse Oximetry 97 02/22/25 13:46 Oxygen Delivery Method Room Air 02/22/25 13:46 Vital Signs Temperature 98.4 F 02/22/25 13:46 Pulse Rate 88 02/22/25 13:46 Respiratory Rate 18 02/22/25 13:46 Blood Pressure 129/79 02/22/25 13:46 Pulse Oximetry 97 02/22/25 13:46 Oxygen Delivery Method Room Air 02/22/25 13:46 Temperature 98.4 F 02/22/25 13:46 Pulse Rate 88 02/22/25 13:46 Respiratory Rate 18 02/22/25 13:46 Blood Pressure 129/79 02/22/25 13:46 Pulse Oximetry 97 02/22/25 13:46 Oxygen Delivery Method Room Air 02/22/25 13:46 Medications Administered Medications: Discontinued Medications Generic Name Dose Route Start Last Admin Trade Name Freq PRN Reason Stop Dose Admin Acetaminophen 1,000 mg 02/22/25 15:34 02/22/25 16:06 Acetaminophen 500 Mg Tablet PO 02/22/25 15:35 1,000 mg ONCE ONE Administration Lorazepam 0.5 mg 02/22/25 14:07 02/22/25 14:50 Lorazepam 2 Mg/Ml Inj IVP 02/22/25 14:08 0.5 mg ONCE ONE Administration Medical Decision Making MDM Narrative Medical decision making narrative: 54-year-old female with leg pain, likely musculoskeletal in nature we discussed symptomatic treatment. Recurrent chest pain. Recent workup was unremarkable. Patient does have follow-up already scheduled. Will return to the ED if symptoms worsen. Medical Records Medical records reviewed: Yes I reviewed the patient's medical records Lab Data Lab results reviewed: Yes I reviewed the patient's lab results Labs: Lab Results 02/22/25 02/22/25 Range/Units 14:25 16:43 WBC 4.67 (4.50-11.00) K/uL RBC 4.13 (4.00-5.20) m/uL Hgb 13.1 (12.0-16.0) gm/dL Hct 39.8 (33.0-51.0) % MCV 96 (80-100) fL MCH 32 (26-34) pg MCHC 33 (32-36) gm/dL RDW Coeff of Jolene 13.1 (11.5-15.5) % Plt Count 248 (140-440) K/uL Neut % (Auto) 58.3 (42.0-72.0) % Lymph % (Auto) 33.0 (20-44) % Parke % (Auto) 4.9 (0.0-11.0) % Eos % (Auto) 3.0 (0.0-7.0) % Baso % (Auto) 0.2 (0.0-3.0) % Neut # (Auto) 2.72 (1.7-7.0) K/uL Lymph # (Auto) 1.54 (0.90-2.90) K/uL Parke # (Auto) 0.20 (0.00-0.90) K/UL Eos # (Auto) 0.14 (0.00-0.50) K/uL Baso # (Auto) 0.01 (0.00-0.30) K/uL Abs Immat Gran (auto) 0.03 (0.00-0.30) K/uL Imm/Tot Granulo (auto) 0.6 % D-Dimer Quant (PE/DVT) < 0.25 (0.00-0.50) ug/ml Sodium 139 (135-149) mmol/L Potassium 3.3 L (3.6-5.1) mmol/L Chloride 100 (96-114) mmol/L Carbon Dioxide 32 (20-32) mmol/L Anion Gap 7 (7-15) mEq/L BUN 5 L (7-30) mg/dL Creatinine 0.9 (0.5-1.5) mg/dL Estimated Creat Clear 61.71 Estimated GFR 76 ml/min Glucose 118 H (60-115) mg/dL Lactate 1.6 (0.5-1.9) mmol/L Calcium 9.1 (8.4-10.6) mg/dL Total Bilirubin 0.4 (0.1-1.5) mg/dL Direct Bilirubin 0.2 (0.0-0.5) mg/dL AST 31 (12-35) U/L ALT 25 (4-35) U/L Alkaline Phosphatase 151 H (40-150) U/L Troponin I < 0.01 (0.01-0.04) ng/mL C-Reactive Protein 1.9 H (0.5-1.0) mg/dL Total Protein 6.8 (6.0-8.3) g/dL Albumin 3.9 (3.3-5.0) g/dL Lipase 48 (23-300) U/L POC Troponin I 0.00 L (0.01-0.04) ng/ml Imaging Data Venous US: Attestation: I have reviewed the pertinent imaging results. Radiologist's impression: TECHNIQUE: A compression venous ultrasound exam was performed of the left lower extremity using alicea-scale imaging, color Doppler, and spectral Doppler analysis. FINDINGS: Sonographic imaging of the left lower extremity demonstrates normal compressibility and color Doppler venous blood flow within the common femoral, femoral, deep femoral, and proximal greater saphenous veins. At a lower level the popliteal, peroneal, and posterior tibial veins also show normal compressibility and color Doppler venous blood flow. The gastrocnemius and small saphenous veins demonstrate normal compressibility. Limited imaging of the contralateral groin demonstrates a normal spectral waveform and color Doppler venous blood flow within the right common femoral vein. IMPRESSION: 1. Negative for acute DVT in the left lower extremity. 2. Evaluation of the left anterior thigh in the area of pain demonstrates no sonographic abnormality. ECG Data Attestation: I personally reviewed and interpreted this ECG as follows: Discharge Plan Discharge Clinical Impression: Leg pain, Chest pain Patient Disposition: Home, Self-Care Condition: Stable Additional Instructions: Return to the ER if symptoms worsen. Okay to use heat to the anterior thigh, use for 20 minutes at a time every 1 to 2 hours. Do not apply heat directly to the skin. Prescriptions: No Action aspirin 81 mg tablet,chewable PO rosuvastatin 10 mg tablet 10 mg PO QPM Qty: 90 0RF omeprazole 20 mg capsule,delayed release(DR/EC) 20 mg PO QDAY Qty: 90 0RF ondansetron HCl 4 mg tablet 4 mg PO QDAY PRN (Reason: nausea and vomiting) Qty: 14 0RF olanzapine 10 mg tablet 10 mg PO QPM lamotrigine 150 mg tablet 150 mg PO DAILY vilazodone [Viibryd] 40 mg tablet 40 mg PO DAILY doxepin 50 mg capsule PO lorazepam 1 mg tablet 1 mg PO 3XD cyclobenzaprine 10 mg tablet 10 mg PO 3XD prazosin 5 mg capsule 10 mg PO DAILY nitroglycerin 0.4 mg tablet, sublingual 0.4 mg sublingual Q5M PRN (Reason: chest pain) Qty: 30 0RF Rx Instructions: do not exceed 3 doses per episode Follow Up/Referrals: Ignacia Shields MD [Primary Care Provider, Family Practice] Stand Alone Forms: Prelertth Info Instructions
[2025-02-22 14:57] LABS: Albumin* 3.9 g/dL (3.3-5.0); Chloride* 100 mmol/L (96-114)
[2025-02-22 14:58] LABS: Potassium* 3.3 mmol/L (3.6-5.1); Sodium* 139 mmol/L (135-149)
[2025-02-22 15:00] LABS: Blood Urea Nitrogen* 5 mg/dL (7-30); Creatinine* 0.9 mg/dL (0.5-1.5); Est. Creatinine Clearance* 61.71; Estimated Glomerular Filt Rate 76 ml/min
[2025-02-22 15:01] LABS: Alanine Aminotransferase* 25 U/L (4-35); Alkaline Phosphatase* 151 U/L (40-150); Anion Gap 7 mEq/L (7-15); Aspartate Amino Transferase* 31 U/L (12-35); Bilirubin Direct* 0.2 mg/dL (0.0-0.5); Bilirubin Total* 0.4 mg/dL (0.1-1.5); Calcium* 9.1 mg/dL (8.4-10.6); Carbon Dioxide* 32 mmol/L (20-32); Glucose* 118 mg/dL (60-115); Total Protein* 6.8 g/dL (6.0-8.3)
[2025-02-22 15:33] LABS: D Dimer Quantitative* < 0.25 ug/ml (0.00-0.50)
[2025-02-22 16:00] VITALS: BP 118/77; PULSE 78; RESP 18; O2SAT 98
[2025-02-22] MEDS: ACETAMINOPHEN 500 MG TABLET 1000 MG PO (16:06)
[2025-02-22 17:11] LABS: Troponin, Point-of-Care* 0.00 ng/ml (0.01-0.04)
== END 2025-02-22 18:10 | disposition home or self-care (01) ==
PROVIDERS: Emergency Provider Family Medicine; PCP Family Medicine
DX: M79.652 Pain in left thigh (principal); R07.9 Chest pain, unspecified
CPT/HCPCS: 36415; 80048; 80076; 83605; 83690; 84484; 85025; 85379; 86140; 93971; 96374; 99284; 99285; A9270; J2060

== ENCOUNTER 2025-02-24 16:56 | Outpatient (CLI) | payer BC, SELFPAY ==
--- NOTE | 2025-02-24 17:00 | CRLHL7_ITS ---
For Patients: As a result of the Century Cures Act, medical imaging exams and procedure reports are released immediately into your electronic medical record. You may view this report before your referring provider. If you have questions, please contact your health care provider. INDICATION: BILATERAL SCREENING MAMMOGRAM, ASYMPTOMATIC 54 Y/O FEMALE COMPARISON: None available. TECHNIQUE: Digital mammogram in CC and MLO projections including computer-aided detection (CAD) and tomosynthesis. BREAST COMPOSITION: There are scattered areas of fibroglandular density. FINDINGS: No suspicious findings. ASSESSMENT: BI-RADS 1 Negative RECOMMENDATION: Annual screening mammogram. A lay language report of this examination will be provided to the patient. Dictated by: Charity Cui MD @ 03/02/2025 15:01:12 (Electronically Signed)
== END 2025-02-24 16:57 | disposition home or self-care (01) ==
LOC: MAMMO 16:57
PROVIDERS: PCP Family Medicine; Visit Provider Family Medicine
DX: Z12.31 Encounter for screening mammogram for malignant neoplasm of breast (principal)
CPT/HCPCS: 77063; 77067

== ENCOUNTER 2025-03-09 07:52 | Outpatient (CLI) | payer BC, SELFPAY | END 2025-03-09 07:53 | disposition home or self-care (01) | LOC: NFLDREF 03-10 12:52 | PROVIDERS: PCP Family Medicine; Referring Provider Family Medicine; Visit Provider Family Medicine | DX: E78.5 Hyperlipidemia, unspecified (principal); E87.6 Hypokalemia | CPT/HCPCS: 80053; 80061 ==

== ENCOUNTER 2025-03-16 11:13 | Outpatient (CLI) | payer BC, SELFPAY | END 2025-03-16 11:14 | disposition home or self-care (01) | PROVIDERS: PCP Family Medicine; Referring Provider Family Medicine; Visit Provider Family Medicine | DX: E78.5 Hyperlipidemia, unspecified (principal); I25.118 Atherosclerotic heart disease of native coronary artery with other forms of angina pectoris; E87.6 Hypokalemia | CPT/HCPCS: 80048; 83695 ==